=== PATIENT | male | born 1950 | race African-American/Black ===

== ENCOUNTER 2016-12-22 19:17 | Emergency (ER) | payer OTHER ==
[~2016-12-22] VITALS: Ht 170.2 cm; Wt 75.0 kg
[~2016-12-22 19:17] MED LIST: ALBU2.5V13 NEB; AMLO10TA80 PO; ATOR10TA PO; ATOR10TA69 PO; CLON0.5T PO; Folic Acid PO; HYDR-523 PO; METR250T PO; Multivitamins,Ther W-Minerals PO; OMEP20CA10 PO; Thiamine Hcl PO
[2016-12-22] MEDS ORDERED: MORPHINE SULFATE 4 MG/ML CPJ (NOT FOR IM USE) IV STA (22:39)
[2016-12-22] MEDS ORDERED: ONDANSETRON HCL 4MG/2ML VIAL IV STA (22:39)
[2016-12-22 22:49] LABS: BASOPHILS % 0.6 % (0.0-2.0); EOSINOPHILS % 4.5 % (0.0-5.0); HEMATOCRIT. 34.3 % (42.0-52.0); HEMOGLOBIN. 11.5 g/dL (14.0-18.0); LYMPHOCYTES % 35.3 % (20.0-50.0); MEAN CORPUSCULAR VOLUME 89.4 fL (80.0-94.0); MONOCYTES % 8.3 % (2.0-8.0); NEUTROPHILS % 51.3 % (40.0-76.0); PLATELET 158 x1000/uL (130-400); RED BLOOD CELL COUNT 3.84 mill/uL (4.7-6.1); RED CELL DISTRIBUTION WIDTH 14.3 % (11.6-14.6)
[2016-12-22 23:03] LABS: CARBON DIOXIDE 29 mEq/L (21-32); CHLORIDE 109 mEq/L (98-107)
[2016-12-22 23:06] LABS: PROTHROMBIN TIME 10.7 sec
[2016-12-23 00:16] LABS: CLARITY URINE CLEAR (CLEAR); COLOR URINE YELLOW (YELLOW); GLUCOSE URINE NEGATIVE (NEGATIVE); KETONES URINE NEGATIVE (NEGATIVE); LEUKOCYTE ESTERASE URINE NEGATIVE (NEGATIVE); NITRITE URINE NEGATIVE (NEGATIVE); OCCULT BLOOD URINE NEGATIVE (NEGATIVE); PROTEIN URINE NEGATIVE (NEGATIVE); SPECIFIC GRAVITY URINE 1.009 (1.005-1.030); UROBILINOGEN URINE 0.2 E.U./dL (0.2-1.0)
[2016-12-23] MEDS ORDERED: MORPHINE SULFATE 4 MG/ML CPJ (NOT FOR IM USE) IV ONE (01:15)
[2016-12-23] MEDS ORDERED: ONDANSETRON HCL 4MG/2ML VIAL IV ONE (01:15)
[2016-12-23 01:53] VITALS: BP 155/98
== END 2016-12-23 02:19 | disposition home or self-care (01) ==
LOC: ER 23:37
DX: A08.4 Viral intestinal infection, unspecified (principal); J45.909 Unspecified asthma, uncomplicated; Z88.0 Allergy status to penicillin; Z90.49 Acquired absence of other specified parts of digestive tract
CPT/HCPCS: 36415; 71010; 74176; 80053; 81003; 83690; 85025; 85610; 96374; 96375; 96376; 99285; J2270; J2405

== ENCOUNTER 2017-02-04 19:59 | Inpatient (IN) | payer OTHER ==
[~2017-02-04] VITALS: Ht 165.1 cm; Wt 73.5 kg
[2017-02-05] MEDS ORDERED: SODIUM CHLORIDE 0.9% 1,000 ML IV ONE (01:03)
[2017-02-05] MEDS ORDERED: ONDANSETRON HCL 4MG/2ML VIAL IV ONE (01:15)
[2017-02-05] MEDS ORDERED: MORPHINE SULFATE 4 MG/ML CPJ (NOT FOR IM USE) IV ONE ×2 (01:15→03:30)
[2017-02-05 01:32] LABS: BASOPHILS % 0.6 % (0.0-2.0); HEMATOCRIT. 36.9 % (42.0-52.0); HEMOGLOBIN. 12.5 g/dL (14.0-18.0); LYMPHOCYTES % 39.5 % (20.0-50.0); MEAN PLATELET VOLUME 8.3 fl (7.4-10.4); MONOCYTES % 8.1 % (2.0-8.0); NEUTROPHILS % 48.8 % (40.0-76.0); PLATELET 192 x1000/uL (130-400); RED BLOOD CELL COUNT 4.15 mill/uL (4.7-6.1); RED CELL DISTRIBUTION WIDTH 13.6 % (11.6-14.6)
[2017-02-05 01:47] LABS: CARBON DIOXIDE 24 mEq/L (21-32); CHLORIDE 106 mEq/L (98-107); TROPONIN I < 0.02 ng/mL (0.00-0.04)
[2017-02-05 01:52] LABS: INR 1.1; PARTIAL THROMBOPLASTIN TIME 28.5 sec (24.0-34.0); PROTHROMBIN TIME 11.1 sec
[2017-02-05 02:50] LABS: CLARITY URINE CLEAR (CLEAR); COLOR URINE YELLOW (YELLOW); GLUCOSE URINE NEGATIVE (NEGATIVE); KETONES URINE 2+ (NEGATIVE); LEUKOCYTE ESTERASE URINE NEGATIVE (NEGATIVE); NITRITE URINE NEGATIVE (NEGATIVE); OCCULT BLOOD URINE NEGATIVE (NEGATIVE); PROTEIN URINE TRACE (NEGATIVE); SPECIFIC GRAVITY URINE 1.024 (1.005-1.030)
[2017-02-05 08:20] VITALS: BP 148/93
[2017-02-05 09:00] VITALS: BP 148/93
[2017-02-05] MEDS ORDERED: CLONIDINE 0.1MG TABLET PO PRN (10:30)
[2017-02-05] MEDS ORDERED: DIPHENHYDRAMINE 50MG/ML VIAL IV PRN (10:30)
[2017-02-05] MEDS ORDERED: GUAIFENESIN 200MG/10ML SUGAR FREE UDC PO PRN (10:30)
[2017-02-05] MEDS ORDERED: IPRATROPIUM/ALBUTEROL 0.5-3(2.5)MG/3ML NEB INH PRN (10:30)
[2017-02-05] MEDS ORDERED: DOCUSATE SODIUM 100MG CAPSULE PO PRN (10:30)
[2017-02-05] MEDS ORDERED: NITROGLYCERIN 0.4MG TABLET SL SL PRN (10:30)
[2017-02-05] MEDS ORDERED: NA PHOS,M-B/NA PHOS,DI-BA ENEMA 118ML PR PRN (10:30)
[2017-02-05] MEDS ORDERED: ZOLPIDEM TARTRATE 5MG TABLET PO PRN (10:30)
[2017-02-05] MEDS ORDERED: MAGNESIUM/ALUMINUM HYDROXIDE/SIMETHICONE 30ML UDC PO PRN (10:30)
[2017-02-05] MEDS: ACETAMINOPHEN 325MG TABLET PO PRN ×2 (11:37→21:24)
[2017-02-05] MEDS: LISINOPRIL 20MG TABLET PO SCH ×2 (11:38→21:24)
[2017-02-05] MEDS: SUCRALFATE 1G TABLET PO SCH ×3 (11:38→21:23)
[2017-02-05] MEDS: PANTOPRAZOLE SODIUM 40 MG/VIAL IV SCH (11:38)
[2017-02-05] MEDS: METOPROLOL TARTRATE 25MG TABLET PO SCH ×2 (11:38→21:36)
[2017-02-05] MEDS: ENOXAPARIN 40MG/0.4ML SYR SUBCUT SCH (11:39)
[2017-02-05 12:00] VITALS: BP 182/96
[2017-02-05] MEDS ORDERED: KCL 20MEQ/100ML PREMIX 100 ML IV SCH (12:00)
[2017-02-05] MEDS ORDERED: SODIUM CHLORIDE 0.9% 10ML VIAL ONE (13:44)
[2017-02-05] MEDS ORDERED: IOHEXOL-300 100 ML BOTTLE ONE (13:44)
[2017-02-05 13:58] LABS: *AMPHETAMINES SCREEN URINE NEGATIVE (NEGATIVE); *BARBITURATES SCREEN URINE NEGATIVE (NEGATIVE); *BENZODIAZEPINES SCREEN URINE NEGATIVE (NEGATIVE); *COCAINE SCREEN URINE NEGATIVE (NEGATIVE); CANNABINOID URINE SCREEN NEGATIVE (NEGATIVE); METHADONE URINE SCREEN NEGATIVE (NEGATIVE); OPIATES URINE SCREEN NEGATIVE (NEGATIVE); PHENCYCLIDINE URINE SCREEN NEGATIVE (NEGATIVE)
[2017-02-05 16:00] VITALS: BP 122/97
[2017-02-05] MEDS: LORAZEPAM 2MG/ML CPJ IV PRN ×2 (18:01→23:06)
[2017-02-05] MEDS: AMLODIPINE 10MG TABLET PO SCH (18:01)
[2017-02-05 20:00] VITALS: BP 130/76
[2017-02-05] MEDS: ONDANSETRON HCL 4MG/2ML VIAL IV PRN (23:11)
[2017-02-06] VITALS: BP 98/72
[2017-02-06 04:00] VITALS: BP 126/80
[2017-02-06] MEDS: ONDANSETRON HCL 4MG/2ML VIAL IV PRN (06:08)
[2017-02-06] MEDS: LORAZEPAM 2MG/ML CPJ IV PRN ×2 (06:09→11:36)
[2017-02-06] MEDS: ACETAMINOPHEN 325MG TABLET PO PRN ×2 (06:11→11:36)
[2017-02-06] MEDS: SUCRALFATE 1G TABLET PO SCH (06:11)
[2017-02-06 08:00] VITALS: BP 126/84
[2017-02-06] MEDS: LISINOPRIL 20MG TABLET PO SCH (08:58)
[2017-02-06] MEDS: AMLODIPINE 10MG TABLET PO SCH (08:58)
[2017-02-06] MEDS: PANTOPRAZOLE SODIUM 40 MG/VIAL IV SCH (08:58)
[2017-02-06] MEDS: ENOXAPARIN 40MG/0.4ML SYR SUBCUT SCH (08:59)
[2017-02-06] MEDS: METOPROLOL TARTRATE 25MG TABLET PO SCH (08:59)
[2017-02-06 12:00] VITALS: BP 129/84
[2017-02-06 14:04] VITALS: BP 129/84
== END 2017-02-06 14:41 | disposition home or self-care (01) | DRG 392 ==
LOC: ER 19:59 → EDBEDREQ 02-05 03:45 → ENRESERV 02-05 07:16 → 6EST 02-05 08:20
PROVIDERS: ADMIT Internal Medicine; ATTEND Internal Medicine
DX: K21.9 Gastro-esophageal reflux disease without esophagitis (principal); R10.13 Epigastric pain; J45.909 Unspecified asthma, uncomplicated; I10 Essential (primary) hypertension; E87.6 Hypokalemia; E78.5 Hyperlipidemia, unspecified; E78.00 Pure hypercholesterolemia, unspecified; Z90.49 Acquired absence of other specified parts of digestive tract; Z76.5 Malingerer [conscious simulation]; Z88.6 Allergy status to analgesic agent; Z88.0 Allergy status to penicillin; Z79.899 Other long term (current) drug therapy
CPT/HCPCS: 36415; 71010; 74177; 80053; 80305; 81001; 83605; 83690; 83880; 84484; 85025; 85610; 85730; 86850; 86900; 87040; 87086; 93005; 93970; 96361; 96374; 96375; 96376; 99291; A4216; C9113; J1650; J2060; J2270; J2405; J3480; J7030; J7040; Q9967

== ENCOUNTER 2017-03-22 07:12 | Emergency (ER) | payer OTHER, MEDICAID ==
[~2017-03-22] VITALS: Ht 167.6 cm; Wt 74.0 kg
[2017-03-22] MEDS ORDERED: PANTOPRAZOLE SODIUM 40 MG/VIAL IV STA (07:32)
[2017-03-22] MEDS ORDERED: SODIUM CHLORIDE 0.9% 1,000 ML IV ONE (07:32)
[2017-03-22 08:07] LABS: BASOPHILS % 1.1 % (0.0-2.0); EOSINOPHILS % 6.5 % (0.0-5.0); HEMATOCRIT. 36.3 % (42.0-52.0); HEMOGLOBIN. 12.1 g/dL (14.0-18.0); LYMPHOCYTES % 40.6 % (20.0-50.0); MEAN CORPUSCULAR HEMOGLOBIN 30.2 pg (28.0-32.0); MEAN CORPUSCULAR VOLUME 90.3 fL (80.0-94.0); MEAN PLATELET VOLUME 8.3 fl (7.4-10.4); MONOCYTES % 6.3 % (2.0-8.0); NEUTROPHILS % 45.5 % (40.0-76.0); PLATELET 203 x1000/uL (130-400); RED BLOOD CELL COUNT 4.02 mill/uL (4.7-6.1); RED CELL DISTRIBUTION WIDTH 13.6 % (11.6-14.6)
[2017-03-22 08:08] LABS: CLARITY URINE CLEAR (CLEAR); COLOR URINE YELLOW (YELLOW); GLUCOSE URINE NEGATIVE (NEGATIVE); KETONES URINE NEGATIVE (NEGATIVE); LEUKOCYTE ESTERASE URINE NEGATIVE (NEGATIVE); NITRITE URINE NEGATIVE (NEGATIVE); OCCULT BLOOD URINE NEGATIVE (NEGATIVE); PH URINE 6.5 (4.5-8.0); PROTEIN URINE NEGATIVE (NEGATIVE); SPECIFIC GRAVITY URINE 1.006 (1.005-1.030); UROBILINOGEN URINE 0.2 E.U./dL (0.2-1.0)
[2017-03-22 08:20] LABS: PARTIAL THROMBOPLASTIN TIME 24.4 sec (23.4-31.0); PROTHROMBIN TIME 10.2 sec (9.4-11.6)
[2017-03-22 08:23] LABS: CARBON DIOXIDE 26 mEq/L (21-32); CHLORIDE 111 mEq/L (98-107); TROPONIN I < 0.02 ng/mL (0.00-0.04)
[2017-03-22 10:11] VITALS: BP 140/90
== END 2017-03-22 11:01 | disposition home or self-care (01) ==
LOC: ER 07:12
DX: K62.5 Hemorrhage of anus and rectum (principal); F10.10 Alcohol abuse, uncomplicated; I10 Essential (primary) hypertension; K21.9 Gastro-esophageal reflux disease without esophagitis; J45.909 Unspecified asthma, uncomplicated; Z88.0 Allergy status to penicillin; Z90.49 Acquired absence of other specified parts of digestive tract; Z98.890 Other specified postprocedural states; Z88.8 Allergy status to other drugs, medicaments and biological substances
CPT/HCPCS: 36415; 71010; 80053; 81003; 83690; 84484; 85025; 85610; 85730; 86850; 86900; 86901; 93005; 96361; 96374; 99285; C9113; J7030

== ENCOUNTER 2017-05-01 21:38 | Inpatient (IN) | payer OTHER, MEDICAID ==
[~2017-05-01] VITALS: Ht 167.6 cm; Wt 75.0 kg
[2017-05-01] MEDS ORDERED: SODIUM CHLORIDE 0.9% 1,000 ML IV ONE (23:12)
[2017-05-01] MEDS ORDERED: MORPHINE SULFATE 4 MG/ML CPJ (NOT FOR IM USE) IV STA (23:12)
[2017-05-01] MEDS ORDERED: ONDANSETRON HCL 4MG/2ML VIAL IV STA (23:12)
[2017-05-01] MEDS ORDERED: FAMOTIDINE 20MG/2ML VIAL IV STA (23:12)
[2017-05-01] MEDS ORDERED: MORPHINE SULFATE 2 MG/ML CPJ (NOT FOR IM USE) IV SCH (23:45)
[2017-05-01 23:46] LABS: BASOPHILS % 0.8 % (0.0-2.0); EOSINOPHILS % 3.6 % (0.0-5.0); HEMATOCRIT. 37.7 % (42.0-52.0); HEMOGLOBIN. 12.9 g/dL (14.0-18.0); LYMPHOCYTES % 37.3 % (20.0-50.0); MEAN CORPUSCULAR HEMOGLOBIN 30.8 pg (28.0-32.0); MEAN CORPUSCULAR VOLUME 90.4 fL (80.0-94.0); MEAN PLATELET VOLUME 8.6 fl (7.4-10.4); MONOCYTES % 7.8 % (2.0-8.0); NEUTROPHILS % 50.5 % (40.0-76.0); PLATELET 196 x1000/uL (130-400); RED BLOOD CELL COUNT 4.17 mill/uL (4.7-6.1); RED CELL DISTRIBUTION WIDTH 13.5 % (11.6-14.6)
[2017-05-01 23:49] LABS: D-DIMER 0.36 mg/L FEU (<0.50); INR 1.1; PROTHROMBIN TIME 11.2 sec (9.4-11.6)
[2017-05-01 23:57] LABS: CARBON DIOXIDE 27 mEq/L (21-32); CHLORIDE 108 mEq/L (98-107); ETHANOL BLOOD < 10 mg/dL; TROPONIN I < 0.02 ng/mL (0.00-0.04)
[2017-05-02] MEDS ORDERED: HYDRALAZINE 20MG/ML VIAL IV SCH (00:28)
[2017-05-02 00:56] LABS: CLARITY URINE CLEAR (CLEAR); COLOR URINE YELLOW (YELLOW); GLUCOSE URINE NEGATIVE (NEGATIVE); KETONES URINE TRACE (NEGATIVE); LEUKOCYTE ESTERASE URINE NEGATIVE (NEGATIVE); NITRITE URINE NEGATIVE (NEGATIVE); OCCULT BLOOD URINE NEGATIVE (NEGATIVE); PROTEIN URINE 1+ (NEGATIVE); SPECIFIC GRAVITY URINE 1.048 (1.005-1.030); UROBILINOGEN URINE 0.2 E.U./dL (0.2-1.0)
[2017-05-02] MEDS ORDERED: DIPHENHYDRAMINE 12.5MG/5ML UDC PO ONE (01:00)
[2017-05-02 01:15] LABS: *AMPHETAMINES SCREEN URINE NEGATIVE (NEGATIVE); *BARBITURATES SCREEN URINE NEGATIVE (NEGATIVE); *BENZODIAZEPINES SCREEN URINE NEGATIVE (NEGATIVE); *COCAINE SCREEN URINE NEGATIVE (NEGATIVE); CANNABINOID URINE SCREEN NEGATIVE (NEGATIVE); METHADONE URINE SCREEN NEGATIVE (NEGATIVE); OPIATES URINE SCREEN PRESUMTIVE POSITIVE (NEGATIVE); PHENCYCLIDINE URINE SCREEN NEGATIVE (NEGATIVE)
[2017-05-02] MEDS ORDERED: DIPHENHYDRAMINE 50MG/ML VIAL IV PRN (01:45)
[2017-05-02] MEDS ORDERED: HYDRALAZINE 20MG/ML VIAL IV PRN (01:45)
[2017-05-02] MEDS ORDERED: IPRATROPIUM/ALBUTEROL 0.5-3(2.5)MG/3ML NEB INH PRN (01:45)
[2017-05-02] MEDS ORDERED: ONDANSETRON HCL 4MG/2ML VIAL ONE (02:14)
[2017-05-02] MEDS ORDERED: HYDRALAZINE 20MG/ML VIAL ONE (03:32)
[2017-05-02 04:00] VITALS: BP 136/84
[2017-05-02] MEDS ORDERED: DEXT 5%/0.45% NACL KCL 20MEQ/L 1,000 ML IV ONE (06:30)
[2017-05-02 08:00] VITALS: BP 170/106
[2017-05-02] MEDS: MORPHINE SULFATE 2 MG/ML CPJ (NOT FOR IM USE) IV PRN ×3 (08:37→23:14)
[2017-05-02] MEDS: CLONIDINE 0.2MG TABLET PO PRN (08:54)
[2017-05-02] MEDS ORDERED: PANTOPRAZOLE SODIUM 40 MG/VIAL IV SCH (09:00)
[2017-05-02] MEDS ORDERED: FAMOTIDINE 20MG/2ML VIAL IV SCH (09:00)
[2017-05-02] MEDS ORDERED: HYDRALAZINE 10 MG in DEXTROSE 5% WATER 50 ML IV PRN (10:15)
[2017-05-02] MEDS ORDERED: ACETAMINOPHEN 325MG TABLET PO PRN (11:30)
[2017-05-02 11:34] VITALS: BP 156/93
[2017-05-02] MEDS ORDERED: ONDANSETRON HCL 4MG/2ML VIAL IV PRN (12:30)
[2017-05-02] MEDS: PANTOPRAZOLE SODIUM 40 MG/VIAL IV SCH ×2 (12:48→20:07)
[2017-05-02 15:59] VITALS: BP 129/91
[2017-05-02] MEDS ORDERED: LORAZEPAM 1MG TABLET PO PRN (16:15)
[2017-05-02 20:00] VITALS: BP 136/79
[2017-05-03] VITALS: BP 121/70
[2017-05-03 08:00] VITALS: BP 147/87
[2017-05-03] MEDS: PANTOPRAZOLE SODIUM 40 MG/VIAL IV SCH (09:52)
[2017-05-03] MEDS ORDERED: MIDAZOLAM HCL 5 MG/5 ML VIAL IV ONE (11:40)
[2017-05-03] MEDS ORDERED: FENTANYL CITRATE/PF 50MCG/ML 2ML VIAL IV ONE (11:40)
[2017-05-03] MEDS ORDERED: MIDAZOLAM HCL 2 MG/2 ML VIAL IV ONE (11:40)
[2017-05-03] MEDS ORDERED: DIPHENHYDRAMINE 50MG/ML VIAL ONE ×2 (11:40→12:14)
[2017-05-03] MEDS ORDERED: DIAZEPAM 5 MG/ML 2ML CPJ IV ONE (11:40)
[2017-05-03] MEDS ORDERED: MIDAZOLAM HCL 5 MG/5 ML VIAL ONE (11:41)
[2017-05-03] MEDS ORDERED: FENTANYL CITRATE/PF 50MCG/ML 2ML VIAL ONE (11:41)
[2017-05-03] MEDS ORDERED: DIAZEPAM 5 MG/ML 2ML CPJ ONE ×2 (11:43→12:15)
[2017-05-03] MEDS ORDERED: SODIUM CHLORIDE 0.9% 10ML VIAL ONE (11:47)
[2017-05-03] MEDS ORDERED: SIMETHICONE 40 MG/0.6 ML 30ML ONE (11:47)
[2017-05-03] MEDS ORDERED: MORPHINE SULFATE 10 MG/ML CPJ IV PRN (15:00)
[2017-05-03] MEDS: CLONIDINE 0.2MG TABLET PO PRN (15:33)
[2017-05-03 16:00] VITALS: BP 168/106
[2017-05-03 16:10] LABS: BASOPHILS % 0.8 % (0.0-2.0); EOSINOPHILS % 4.7 % (0.0-5.0); HEMATOCRIT. 43.7 % (42.0-52.0); HEMOGLOBIN. 14.5 g/dL (14.0-18.0); LYMPHOCYTES % 36.3 % (20.0-50.0); MEAN CORPUSCULAR HEMOGLOBIN 30.3 pg (28.0-32.0); MEAN CORPUSCULAR VOLUME 91.6 fL (80.0-94.0); MEAN PLATELET VOLUME 8.9 fl (7.4-10.4); MONOCYTES % 5.2 % (2.0-8.0); PLATELET 191 x1000/uL (130-400); RED BLOOD CELL COUNT 4.77 mill/uL (4.7-6.1); RED CELL DISTRIBUTION WIDTH 13.7 % (11.6-14.6)
[2017-05-03 16:14] LABS: INR 1.1; PARTIAL THROMBOPLASTIN TIME 21.7 sec (23.4-31.0); PROTHROMBIN TIME 11.8 sec (9.4-11.6)
[2017-05-03 16:22] LABS: CARBON DIOXIDE 27 mEq/L (21-32); CHLORIDE 109 mEq/L (98-107)
[2017-05-03 16:44] VITALS: BP 140/85
[2017-05-03] MEDS ORDERED: DIPHENHYDRAMINE 50MG/ML VIAL IV ONE (21:05)
== END 2017-05-03 15:30 | disposition home or self-care (01) | DRG 392 ==
LOC: ER 22:12 → 6EST 05-02 00:34 → ENRESERV 05-02 04:58
PROVIDERS: ADMIT Internal Medicine; ATTEND Internal Medicine
PROC: 0DB68ZX Excision of Stomach, Via Natural or Artificial Opening Endoscopic, Diagnostic (ICD-10-PCS; principal; 2017-05-03 10:00)
DX: K29.60 Other gastritis without bleeding (principal); K56.7 Ileus, unspecified; N30.90 Cystitis, unspecified without hematuria; E78.00 Pure hypercholesterolemia, unspecified; F41.9 Anxiety disorder, unspecified; I10 Essential (primary) hypertension; J45.909 Unspecified asthma, uncomplicated; Z60.2 Problems related to living alone; K21.9 Gastro-esophageal reflux disease without esophagitis; K57.30 Diverticulosis of large intestine without perforation or abscess without bleeding; N28.1 Cyst of kidney, acquired; N40.0 Benign prostatic hyperplasia without lower urinary tract symptoms; Z87.11 Personal history of peptic ulcer disease; Z90.49 Acquired absence of other specified parts of digestive tract; Z88.6 Allergy status to analgesic agent; Z88.0 Allergy status to penicillin; Z88.8 Allergy status to other drugs, medicaments and biological substances; Z82.49 Family history of ischemic heart disease and other diseases of the circulatory system
CPT/HCPCS: 36415; 71010; 74176; 80048; 80053; 80305; 81001; 82962; 83605; 83690; 83880; 84484; 85025; 85379; 85610; 85730; 88305; 88312; 88313; 93005; 96361; 96365; 96375; 96376; 99291; A4216; C1893; C9113; G0482; J0360; J1200; J2250; J2270; J2405; J3010; J3490; J7030

== ENCOUNTER 2017-08-09 09:05 | Emergency (ER) | payer OTHER, MEDICAID ==
[~2017-08-09] VITALS: Ht 180.3 cm; Wt 75.0 kg
[2017-08-09] MEDS ORDERED: ACETAMINOPHEN 500MG TABLET PO ONE (11:45)
[2017-08-09 12:08] VITALS: BP 139/81
== END 2017-08-09 12:09 | disposition home or self-care (01) ==
LOC: ER 09:12
DX: S39.012A Strain of muscle, fascia and tendon of lower back, initial encounter (principal); S00.93XA Contusion of unspecified part of head, initial encounter; G89.29 Other chronic pain; J45.909 Unspecified asthma, uncomplicated; I10 Essential (primary) hypertension; E78.00 Pure hypercholesterolemia, unspecified; Z88.0 Allergy status to penicillin; Z88.8 Allergy status to other drugs, medicaments and biological substances; Z88.6 Allergy status to analgesic agent; Y93.89 Activity, other specified; X58.XXXA Exposure to other specified factors, initial encounter; Y92.89 Other specified places as the place of occurrence of the external cause; Y99.8 Other external cause status
CPT/HCPCS: 99283

== ENCOUNTER 2017-09-26 00:49 | Inpatient (IN) | payer OTHER, MEDICAID ==
[~2017-09-26] VITALS: Ht 170.2 cm; Wt 74.4 kg
[2017-09-26] MEDS ORDERED: MORPHINE SULFATE 4 MG/ML CPJ (NOT FOR IM USE) IV STA (02:38)
[2017-09-26] MEDS ORDERED: SODIUM CHLORIDE 0.9% 1,000 ML IV ONE (02:38)
[2017-09-26] MEDS ORDERED: ONDANSETRON HCL 4MG/2ML VIAL IV STA (02:38)
[2017-09-26] MEDS ORDERED: FAMOTIDINE 20MG/2ML VIAL IV STA (02:38)
[2017-09-26 03:05] LABS: BASOPHILS % 1.8 % (0.0-2.0); EOSINOPHILS % 1.9 % (0.0-5.0); HEMATOCRIT. 41.3 % (42.0-52.0); HEMOGLOBIN. 13.9 g/dL (14.0-18.0); MEAN CORPUSCULAR VOLUME 92.2 fL (80.0-94.0); MONOCYTES % 7.2 % (2.0-8.0); NEUTROPHILS % 54.1 % (40.0-76.0); PLATELET 218 x1000/uL (130-400); RED BLOOD CELL COUNT 4.48 mill/uL (4.7-6.1); RED CELL DISTRIBUTION WIDTH 13.5 % (11.6-14.6)
[2017-09-26 03:14] LABS: CHLORIDE 110 mEq/L (98-107)
[2017-09-26] MEDS ORDERED: SODIUM CHLORIDE 0.9% 1,000 ML IV SCH (05:12)
[2017-09-26] MEDS ORDERED: ACETAMINOPHEN 325MG TABLET PO PRN ×2 (05:15→10:00)
[2017-09-26 08:00] VITALS: BP 130/89
[2017-09-26 08:40] VITALS: BP 130/89
[2017-09-26] MEDS ORDERED: LORAZEPAM 0.5MG TABLET PO PRN (10:00)
[2017-09-26] MEDS ORDERED: ONDANSETRON HCL 4MG/2ML VIAL IV PRN (10:00)
[2017-09-26] MEDS ORDERED: DOCUSATE SODIUM 100MG CAPSULE PO PRN (10:00)
[2017-09-26] MEDS ORDERED: NITROGLYCERIN 0.4MG TABLET SL SL PRN (10:00)
[2017-09-26] MEDS ORDERED: CLONIDINE 0.1MG TABLET PO PRN (10:00)
[2017-09-26] MEDS ORDERED: NA PHOS,M-B/NA PHOS,DI-BA ENEMA 118ML PR PRN (10:00)
[2017-09-26] MEDS ORDERED: IPRATROPIUM/ALBUTEROL 0.5-3(2.5)MG/3ML NEB INH PRN (10:00)
[2017-09-26] MEDS ORDERED: MAGNESIUM/ALUMINUM HYDROXIDE/SIMETHICONE 30ML UDC PO PRN (10:00)
[2017-09-26] MEDS ORDERED: DIPHENHYDRAMINE 50MG/ML VIAL IV PRN (10:00)
[2017-09-26] MEDS ORDERED: GUAIFENESIN 200MG/10ML SUGAR FREE UDC PO PRN (10:00)
[2017-09-26] MEDS ORDERED: PANTOPRAZOLE 40MG DR TABLET PO SCH (10:30)
[2017-09-26] MEDS ORDERED: ENOXAPARIN 40MG/0.4ML SYR SUBCUT SCH (11:00)
[2017-09-26] MEDS ORDERED: SUCRALFATE 1 G/10 ML UDC PO SCH (12:10)
[2017-09-26] MEDS ORDERED: ZOLPIDEM TARTRATE 5MG TABLET PO PRN (21:00)
== END 2017-09-26 11:00 | disposition left against medical advice (07) | DRG 391 ==
LOC: ER 00:49 → 8WST 05:14 → EDBEDREQ 05:18 → EDBEDREQSVC 05:18 → ENRESERV 08:03
PROVIDERS: ADMIT Internal Medicine; ATTEND Internal Medicine
DX: K29.70 Gastritis, unspecified, without bleeding (principal); N17.0 Acute kidney failure with tubular necrosis; D64.9 Anemia, unspecified; E78.00 Pure hypercholesterolemia, unspecified; Z53.21 Procedure and treatment not carried out due to patient leaving prior to being seen by health care provider; F10.10 Alcohol abuse, uncomplicated; I10 Essential (primary) hypertension; J45.909 Unspecified asthma, uncomplicated; Z82.49 Family history of ischemic heart disease and other diseases of the circulatory system; Z90.49 Acquired absence of other specified parts of digestive tract; Z88.0 Allergy status to penicillin; Z88.6 Allergy status to analgesic agent; Z88.8 Allergy status to other drugs, medicaments and biological substances; Z79.51 Long term (current) use of inhaled steroids; Z79.899 Other long term (current) drug therapy
CPT/HCPCS: 36415; 80053; 83036; 83690; 85025; 96361; 96374; 96375; 99285; J2270; J2405; J3490; J7030

== ENCOUNTER 2018-03-12 03:11 | Emergency (ER) | payer MEDICAID, OTHER ==
[~2018-03-12] VITALS: Ht 170.2 cm; Wt 74.5 kg
[2018-03-12] MEDS ORDERED: MORPHINE SULFATE 10 MG/ML CPJ IM ONE (05:30)
[2018-03-12] MEDS ORDERED: ONDANSETRON 4MG ODT PO ONE (05:30)
[2018-03-12 06:13] VITALS: BP 141/90
== END 2018-03-12 06:15 | disposition home or self-care (01) ==
LOC: ER 03:11
DX: M54.30 Sciatica, unspecified side (principal); J45.909 Unspecified asthma, uncomplicated; I10 Essential (primary) hypertension; Z88.0 Allergy status to penicillin; Z88.8 Allergy status to other drugs, medicaments and biological substances; Z88.6 Allergy status to analgesic agent
CPT/HCPCS: 96372; 99283; J2270; Q0162; Z7610

== ENCOUNTER 2018-03-25 18:59 | Emergency (ER) | payer MEDICAID, OTHER ==
[~2018-03-25] VITALS: Ht 170.2 cm; Wt 74.0 kg
[2018-03-25] MEDS ORDERED: FOLIC ACID 1 MG, THIAMINE HCL 100 MG, MVI, ADULT NO.1 10 ML in DEXTROSE 5% WATER 1,000 ML IV ONE ×4 (22:45)
[2018-03-25] MEDS ORDERED: LORAZEPAM 2MG/ML CPJ IV STA (22:45)
[2018-03-25] MEDS ORDERED: ONDANSETRON HCL 4MG/2ML INJ IV ONE (23:30)
[2018-03-26 00:05] LABS: BASOPHILS % 0.5 % (0.0-2.0); EOSINOPHILS % 3.9 % (0.0-5.0); HEMATOCRIT. 39.6 % (42.0-52.0); LYMPHOCYTES % 38.9 % (20.0-50.0); MEAN CORPUSCULAR HEMOGLOBIN 30.1 pg (28.0-32.0); MEAN PLATELET VOLUME 8.2 fl (7.4-10.4); MONOCYTES % 7.5 % (2.0-8.0); NEUTROPHILS % 49.2 % (40.0-76.0); PLATELET 213 x1000/uL (130-400); RED BLOOD CELL COUNT 4.31 mill/uL (4.7-6.1); RED CELL DISTRIBUTION WIDTH 13.8 % (11.6-14.6)
[2018-03-26 00:10] LABS: CHLORIDE 108 mEq/L (98-107)
[2018-03-26 00:14] LABS: ETHANOL BLOOD 14 mg/dL
[2018-03-26] MEDS ORDERED: CHLORDIAZEPOXIDE 25MG CAPSULE PO ONE (03:00)
[2018-03-26 03:56] LABS: CLARITY URINE CLEAR (CLEAR); COLOR URINE YELLOW (YELLOW); KETONES URINE NEGATIVE (NEGATIVE); LEUKOCYTE ESTERASE URINE NEGATIVE (NEGATIVE); NITRITE URINE NEGATIVE (NEGATIVE); OCCULT BLOOD URINE NEGATIVE (NEGATIVE); PROTEIN URINE NEGATIVE (NEGATIVE); SPECIFIC GRAVITY URINE 1.018 (1.005-1.030); UROBILINOGEN URINE 0.2 E.U./dL (0.2-1.0)
[2018-03-26 04:42] LABS: METHADONE URINE SCREEN NEGATIVE (NEGATIVE); OPIATES URINE SCREEN PRESUMTIVE POSITIVE (NEGATIVE); PHENCYCLIDINE URINE SCREEN NEGATIVE (NEGATIVE)
[2018-03-26 04:43] LABS: *AMPHETAMINES SCREEN URINE NEGATIVE (NEGATIVE); *BARBITURATES SCREEN URINE NEGATIVE (NEGATIVE); *BENZODIAZEPINES SCREEN URINE PRESUMTIVE POSITIVE (NEGATIVE); *COCAINE SCREEN URINE NEGATIVE (NEGATIVE); CANNABINOID URINE SCREEN NEGATIVE (NEGATIVE)
[2018-03-26 05:50] VITALS: BP 129/68
== END 2018-03-26 05:55 | disposition home or self-care (01) ==
LOC: ER 18:59
DX: F10.239 Alcohol dependence with withdrawal, unspecified (principal); I10 Essential (primary) hypertension; K21.9 Gastro-esophageal reflux disease without esophagitis; J45.909 Unspecified asthma, uncomplicated; Y90.0 Blood alcohol level of less than 20 mg/100 ml; Z98.890 Other specified postprocedural states; Z88.0 Allergy status to penicillin; Z88.6 Allergy status to analgesic agent; Z90.49 Acquired absence of other specified parts of digestive tract
CPT/HCPCS: 36415; 80053; 80305; 81003; 83690; 85025; 96365; 96366; 96375; 99285; G0482; J2060; J2405; J3411; J3490; J7070; Z7610

== ENCOUNTER 2018-04-07 05:34 | Emergency (ER) | payer MEDICAID, OTHER ==
[~2018-04-07] VITALS: Ht 170.2 cm; Wt 75.0 kg
[2018-04-07] MEDS ORDERED: ACETAMINOPHEN WITH CODEINE 300/30MG TABLET PO ONE (08:00)
[2018-04-07] MEDS ORDERED: TRAMADOL 50MG TABLET PO ONE (09:30)
[2018-04-07 09:44] VITALS: BP 134/80
== END 2018-04-07 09:46 | disposition home or self-care (01) ==
LOC: ER 05:34
DX: M54.42 Lumbago with sciatica, left side (principal); M54.41 Lumbago with sciatica, right side; G89.29 Other chronic pain; I10 Essential (primary) hypertension; Z88.0 Allergy status to penicillin; Z88.6 Allergy status to analgesic agent; Z88.8 Allergy status to other drugs, medicaments and biological substances; Z87.891 Personal history of nicotine dependence
CPT/HCPCS: 99283

== ENCOUNTER 2018-07-17 03:31 | Emergency (ER) | payer MEDICAID, OTHER ==
[~2018-07-17] VITALS: Ht 170.2 cm; Wt 75.0 kg
[2018-07-17] MEDS ORDERED: HYDROCODONE/ACETAMINOPHEN 5/325MG TABLET PO ONE (06:30)
[2018-07-17] MEDS ORDERED: LORAZEPAM 1MG TABLET PO ONE (08:45)
[2018-07-17] MEDS ORDERED: MORPHINE SULFATE 10 MG/ML CPJ IM ONE (08:45)
[2018-07-17] MEDS ORDERED: ONDANSETRON 4MG ODT PO ONE (08:45)
[2018-07-17 10:00] VITALS: BP 144/84
== END 2018-07-17 10:30 | disposition home or self-care (01) ==
LOC: ER 03:31
DX: G89.29 Other chronic pain (principal); M54.5 Low back pain; M54.30 Sciatica, unspecified side; I10 Essential (primary) hypertension; J45.909 Unspecified asthma, uncomplicated; Z88.6 Allergy status to analgesic agent; Z88.0 Allergy status to penicillin
CPT/HCPCS: 96372; 99284; J2270; Q0162

== ENCOUNTER 2018-08-08 01:41 | Inpatient (IN) | payer MEDICAID, OTHER ==
[~2018-08-08] VITALS: Ht 170.2 cm; Wt 69.0 kg
[2018-08-08 05:43] LABS: BASOPHILS % 0.7 % (0.0-2.0); EOSINOPHILS % 2.4 % (0.0-5.0); HEMATOCRIT. 38.1 % (42.0-52.0); HEMOGLOBIN. 12.7 g/dL (14.0-18.0); LYMPHOCYTES % 40.3 % (20.0-50.0); MEAN CORPUSCULAR HEMOGLOBIN 30.5 pg (28.0-32.0); MEAN CORPUSCULAR VOLUME 91.5 fL (80.0-94.0); MEAN PLATELET VOLUME 7.8 fl (7.4-10.4); NEUTROPHILS % 49.6 % (40.0-76.0); PLATELET 267 x1000/uL (130-400); RED BLOOD CELL COUNT 4.17 mill/uL (4.7-6.1); RED CELL DISTRIBUTION WIDTH 13.8 % (11.6-14.6)
[2018-08-08 05:44] LABS: CHLORIDE 105 mEq/L (98-107)
[2018-08-08 05:48] LABS: ETHANOL BLOOD < 10 mg/dL
[2018-08-08 05:56] LABS: CLARITY URINE CLEAR (CLEAR); COLOR URINE YELLOW (YELLOW); KETONES URINE TRACE (NEGATIVE); LEUKOCYTE ESTERASE URINE NEGATIVE (NEGATIVE); NITRITE URINE NEGATIVE (NEGATIVE); OCCULT BLOOD URINE NEGATIVE (NEGATIVE); PROTEIN URINE TRACE (NEGATIVE); UROBILINOGEN URINE 0.2 E.U./dL (0.2-1.0)
[2018-08-08 06:13] LABS: *BARBITURATES SCREEN URINE NEGATIVE (NEGATIVE); *COCAINE SCREEN URINE NEGATIVE (NEGATIVE)
[2018-08-08 06:14] LABS: *AMPHETAMINES SCREEN URINE NEGATIVE (NEGATIVE); *BENZODIAZEPINES SCREEN URINE PRESUMTIVE POSITIVE (NEGATIVE); CANNABINOID URINE SCREEN NEGATIVE (NEGATIVE); METHADONE URINE SCREEN NEGATIVE (NEGATIVE); OPIATES URINE SCREEN PRESUMTIVE POSITIVE (NEGATIVE); PHENCYCLIDINE URINE SCREEN NEGATIVE (NEGATIVE)
[2018-08-08] MEDS ORDERED: ONDANSETRON HCL 4MG/2ML INJ IV ONE (06:45)
[2018-08-08] MEDS ORDERED: SODIUM CHLORIDE 0.9% 1,000 ML IV ONE (06:45)
[2018-08-08] MEDS ORDERED: MORPHINE SULFATE 4 MG/ML CPJ (NOT FOR IM USE) IV ONE ×2 (06:45→11:00)
[2018-08-08 07:07] LABS: CREATINE KINASE 206 IU/L (39-308)
[2018-08-08] MEDS ORDERED: IOHEXOL-300 100 ML BOTTLE ONE (09:42)
[2018-08-08] MEDS ORDERED: METOCLOPRAMIDE HCL 10MG/2ML VIAL IV ONE (11:00)
[2018-08-08] MEDS ORDERED: ACETAMINOPHEN 325MG TABLET PO PRN (14:15)
[2018-08-08] MEDS ORDERED: DOCUSATE SODIUM 100MG CAPSULE PO PRN (14:15)
[2018-08-08] MEDS ORDERED: NA PHOS,M-B/NA PHOS,DI-BA ENEMA 118ML PR PRN (14:15)
[2018-08-08] MEDS ORDERED: IPRATROPIUM/ALBUTEROL 0.5-3(2.5)MG/3ML NEB INH PRN (14:15)
[2018-08-08] MEDS ORDERED: MAGNESIUM/ALUMINUM HYDROXIDE/SIMETHICONE 30ML UDC PO PRN (14:15)
[2018-08-08] MEDS ORDERED: CLONIDINE 0.1MG TABLET PO PRN (14:15)
[2018-08-08] MEDS ORDERED: GUAIFENESIN 200MG/10ML SUGAR FREE UDC PO PRN (14:15)
[2018-08-08 15:35] LABS: CHLORIDE 107 mEq/L (98-107)
[2018-08-08] MEDS: ONDANSETRON HCL 4MG/2ML INJ IV PRN (16:22)
[2018-08-08] MEDS: MORPHINE SULFATE 4 MG/ML CPJ (NOT FOR IM USE) IV PRN ×2 (16:22→22:25)
[2018-08-08] MEDS ORDERED: AMLODIPINE 5MG TABLET PO NR (18:00)
[2018-08-08] MEDS ORDERED: ENOXAPARIN 40MG/0.4ML SYR SUBCUT NR (18:00)
[2018-08-08 21:17] VITALS: BP 147/90
[2018-08-08 22:00] VITALS: BP 128/74
[2018-08-08] MEDS: LORAZEPAM 2MG/ML CPJ IV PRN (22:16)
[2018-08-08] MEDS ORDERED: METO25TA6 MT (23:04)
[2018-08-09] VITALS (12 sets, daily range): BP systolic 119–144; BP diastolic 76–91
[2018-08-09 06:58] LABS: BASOPHILS % 0.8 % (0.0-2.0); HEMATOCRIT. 35.4 % (42.0-52.0); HEMOGLOBIN. 11.9 g/dL (14.0-18.0); LYMPHOCYTES % 41.3 % (20.0-50.0); MEAN CORPUSCULAR HEMOGLOBIN 30.7 pg (28.0-32.0); MEAN CORPUSCULAR VOLUME 91.6 fL (80.0-94.0); MEAN PLATELET VOLUME 7.8 fl (7.4-10.4); MONOCYTES % 7.1 % (2.0-8.0); NEUTROPHILS % 44.8 % (40.0-76.0); PLATELET 243 x1000/uL (130-400); RED BLOOD CELL COUNT 3.86 mill/uL (4.7-6.1); RED CELL DISTRIBUTION WIDTH 14.1 % (11.6-14.6)
[2018-08-09 07:33] LABS: CHLORIDE 106 mEq/L (98-107)
[2018-08-09 07:41] LABS: CREATINE KINASE MB FRACTION < 1.0 ng/mL (0.5-3.6)
[2018-08-09 07:42] LABS: HDL CHOLESTEROL 70 mg/dL (40-59)
[2018-08-09 07:43] LABS: LDL CHOLESTEROL 162 mg/dL (5-100)
[2018-08-09 07:44] LABS: CREATINE KINASE 109 IU/L (39-308)
[2018-08-09] MEDS: ASPIRIN 81MG EC TABLET PO SCH (08:09)
[2018-08-09] MEDS: MORPHINE SULFATE 4 MG/ML CPJ (NOT FOR IM USE) IV PRN (08:09)
[2018-08-09] MEDS: ENOXAPARIN 40MG/0.4ML SYR SUBCUT SCH (08:09)
[2018-08-09] MEDS: AMLODIPINE 5MG TABLET PO SCH ×2 (08:10→20:52)
[2018-08-09] MEDS: HYDROCODONE/ACETAMINOPHEN 5/325MG TABLET PO PRN ×2 (11:55→18:59)
[2018-08-09] MEDS: LORAZEPAM 2MG/ML CPJ IV PRN ×2 (14:17→20:53)
[2018-08-09] MEDS: ATORVASTATIN CALCIUM 20MG TABLET PO SCH (20:51)
[2018-08-10] VITALS (12 sets, daily range): BP systolic 114–165; BP diastolic 24–96
[2018-08-10] MEDS: HYDROCODONE/ACETAMINOPHEN 5/325MG TABLET PO PRN ×3 (01:59→17:59)
[2018-08-10] MEDS: MORPHINE SULFATE 4 MG/ML CPJ (NOT FOR IM USE) IV PRN ×3 (05:01→21:37)
[2018-08-10] MEDS: LORAZEPAM 2MG/ML CPJ IV PRN ×3 (07:30→22:11)
[2018-08-10] MEDS: ONDANSETRON HCL 4MG/2ML INJ IV PRN (07:30)
[2018-08-10] MEDS: AMLODIPINE 5MG TABLET PO SCH ×2 (08:49→20:34)
[2018-08-10] MEDS: ASPIRIN 81MG EC TABLET PO SCH (08:49)
[2018-08-10] MEDS: ENOXAPARIN 40MG/0.4ML SYR SUBCUT SCH (08:50)
[2018-08-10] MEDS: BACLOFEN 10MG TABLET PO PRN (12:33)
[2018-08-10] MEDS ORDERED: REGADENOSON 0.4 MG/5 ML IV ONE (12:45)
[2018-08-10] MEDS: ATORVASTATIN CALCIUM 20MG TABLET PO SCH (20:30)
[2018-08-11] VITALS: BP 122/81
[2018-08-11 02:10] VITALS: BP 123/83
[2018-08-11] MEDS: HYDROCODONE/ACETAMINOPHEN 5/325MG TABLET PO PRN (02:10)
[2018-08-11 04:00] VITALS: BP 112/68
[2018-08-11] MEDS: LORAZEPAM 2MG/ML CPJ IV PRN (04:57)
[2018-08-11 06:00] VITALS: BP 133/83
[2018-08-11 07:06] LABS: BASOPHILS % 0.5 % (0.0-2.0); EOSINOPHILS % 2.5 % (0.0-5.0); HEMATOCRIT. 37.5 % (42.0-52.0); HEMOGLOBIN. 12.4 g/dL (14.0-18.0); LYMPHOCYTES % 23.9 % (20.0-50.0); MEAN CORPUSCULAR HEMOGLOBIN 30.4 pg (28.0-32.0); MEAN PLATELET VOLUME 8.1 fl (7.4-10.4); MONOCYTES % 11.1 % (2.0-8.0); PLATELET 245 x1000/uL (130-400); RED BLOOD CELL COUNT 4.07 mill/uL (4.7-6.1); RED CELL DISTRIBUTION WIDTH 13.9 % (11.6-14.6)
[2018-08-11 07:23] LABS: CHLORIDE 103 mEq/L (98-107)
[2018-08-11] MEDS: ASPIRIN 81MG EC TABLET PO SCH (08:04)
[2018-08-11] MEDS: ENOXAPARIN 40MG/0.4ML SYR SUBCUT SCH (08:05)
[2018-08-11] MEDS: AMLODIPINE 5MG TABLET PO SCH (08:05)
[2018-08-11] MEDS ORDERED: REGADENOSON 0.4 MG/5 ML IV ONE (08:14)
[2018-08-11] MEDS: BACLOFEN 10MG TABLET PO PRN (09:08)
[2018-08-11 10:00] VITALS: BP 129/87
[2018-08-11] MEDS: MORPHINE SULFATE 4 MG/ML CPJ (NOT FOR IM USE) IV PRN (10:46)
[2018-08-11 11:46] VITALS: BP 125/78
== END 2018-08-11 13:18 | disposition home or self-care (01) | DRG 243 ==
LOC: ER 01:41 → 3WST 12:55 → EDBEDREQ 14:03 → ENRESERV 18:44
PROVIDERS: ADMIT Internal Medicine; ATTEND Internal Medicine
DX: K21.9 Gastro-esophageal reflux disease without esophagitis (principal); E46 Unspecified protein-calorie malnutrition; I10 Essential (primary) hypertension; K86.1 Other chronic pancreatitis; F10.10 Alcohol abuse, uncomplicated; E78.2 Mixed hyperlipidemia; Z68.23 Body mass index [BMI] 23.0-23.9, adult; R10.9 Unspecified abdominal pain; J45.909 Unspecified asthma, uncomplicated; Z79.899 Other long term (current) drug therapy; Z82.49 Family history of ischemic heart disease and other diseases of the circulatory system; Z88.0 Allergy status to penicillin; Z88.1 Allergy status to other antibiotic agents; Z88.8 Allergy status to other drugs, medicaments and biological substances
CPT/HCPCS: 36415; 71045; 74177; 78452; 80048; 80061; 80305; 82550; 82553; 83735; 83880; 84439; 84443; 84484; 85379; 93005; 93017; 93306; 96361; 96374; 96375; 99285; A9500; G0482; J1650; J2060; J2270; J2405; J2765; J2785; J7030; Q9967

== ENCOUNTER 2018-09-08 02:42 | Emergency (ER) | payer MEDICAID, OTHER ==
[~2018-09-08] VITALS: Ht 170.2 cm; Wt 74.0 kg
[~2018-09-08 02:42] MED LIST changes: +METO25TA6 MT
[2018-09-08 03:03] VITALS: BP 163/93
== END 2018-09-08 09:48 | disposition left against medical advice (07) ==
LOC: ER 02:42
DX: Z53.21 Procedure and treatment not carried out due to patient leaving prior to being seen by health care provider (principal)

== ENCOUNTER 2018-10-03 17:00 | Inpatient (IN) | payer OTHER, MEDICAID ==
[~2018-10-03] VITALS: Ht 322.6 cm; Wt 71.7 kg
[2018-10-03] MEDS ORDERED: ASPIRIN 81MG TABLET PO ONE (18:45)
[2018-10-03 19:24] LABS: BASOPHILS % 0.5 % (0.0-2.0); EOSINOPHILS % 6.2 % (0.0-5.0); HEMATOCRIT. 39.3 % (42.0-52.0); HEMOGLOBIN. 13.2 g/dL (14.0-18.0); LYMPHOCYTES % 36.4 % (20.0-50.0); MEAN CORPUSCULAR HEMOGLOBIN 31.2 pg (28.0-32.0); MEAN CORPUSCULAR VOLUME 92.9 fL (80.0-94.0); MEAN PLATELET VOLUME 7.6 fl (7.4-10.4); MONOCYTES % 6.2 % (2.0-8.0); NEUTROPHILS % 50.7 % (40.0-76.0); PLATELET 303 x1000/uL (130-400); RED BLOOD CELL COUNT 4.23 mill/uL (4.7-6.1); RED CELL DISTRIBUTION WIDTH 13.5 % (11.6-14.6)
[2018-10-03 19:30] LABS: CHLORIDE 109 mEq/L (98-107)
[2018-10-03] MEDS ORDERED: FAMOTIDINE 20MG TABLET PO ONE (21:45)
[2018-10-03] MEDS ORDERED: ACETAMINOPHEN 650MG/20.3ML UDC GT PRN (23:45)
[2018-10-03] MEDS ORDERED: IPRATROPIUM/ALBUTEROL 0.5-3(2.5)MG/3ML NEB INH PRN (23:45)
[2018-10-03] MEDS ORDERED: DIPHENHYDRAMINE 50MG/ML VIAL IV PRN (23:45)
[2018-10-03] MEDS ORDERED: ACETAMINOPHEN 650MG SUPP PR PRN (23:45)
[2018-10-03] MEDS ORDERED: ACETAMINOPHEN 325MG TABLET PO PRN (23:45)
[2018-10-03] MEDS ORDERED: DOCUSATE SODIUM 100MG CAPSULE PO PRN (23:45)
[2018-10-03] MEDS ORDERED: GUAIFENESIN 200MG/10ML SUGAR FREE UDC PO PRN (23:45)
[2018-10-03] MEDS ORDERED: NA PHOS,M-B/NA PHOS,DI-BA ENEMA 118ML PR PRN (23:45)
[2018-10-03] MEDS ORDERED: ONDANSETRON HCL 4MG/2ML INJ IV PRN (23:45)
[2018-10-03] MEDS ORDERED: CLONIDINE 0.1MG TABLET PO PRN (23:45)
[2018-10-04] MEDS: HYDROCODONE/APAP 7.5/325MG 1 TAB TABLET PO PRN ×3 (00:39→16:18)
[2018-10-04 06:04] LABS: BASOPHILS % 0.6 % (0.0-2.0); EOSINOPHILS % 10.9 % (0.0-5.0); HEMATOCRIT. 36.4 % (42.0-52.0); HEMOGLOBIN. 12.1 g/dL (14.0-18.0); LYMPHOCYTES % 40.5 % (20.0-50.0); MEAN CORPUSCULAR HEMOGLOBIN 30.5 pg (28.0-32.0); MEAN PLATELET VOLUME 7.7 fl (7.4-10.4); MONOCYTES % 7.8 % (2.0-8.0); NEUTROPHILS % 40.2 % (40.0-76.0); PLATELET 271 x1000/uL (130-400); RED BLOOD CELL COUNT 3.96 mill/uL (4.7-6.1); RED CELL DISTRIBUTION WIDTH 13.7 % (11.6-14.6)
[2018-10-04 06:10] LABS: CHLORIDE 109 mEq/L (98-107)
[2018-10-04 06:18] LABS: HDL CHOLESTEROL 67 mg/dL (40-59)
[2018-10-04 06:19] LABS: CREATINE KINASE 179 IU/L (39-308); LDL CHOLESTEROL 160 mg/dL (5-100)
[2018-10-04 06:22] LABS: CREATINE KINASE MB FRACTION 1.5 ng/mL (0.5-3.6)
[2018-10-04 09:30] VITALS: BP 142/78
[2018-10-04] MEDS: ENOXAPARIN 40MG/0.4ML SYR SUBCUT SCH (11:02)
[2018-10-04 12:00] VITALS: BP 123/74
[2018-10-04 16:00] VITALS: BP 93/68
[2018-10-04 16:00] LABS: CREATINE KINASE 156 IU/L (39-308)
[2018-10-04 16:01] LABS: CREATINE KINASE MB FRACTION 1.2 ng/mL (0.5-3.6)
[2018-10-04] MEDS: SODIUM CHLORIDE 0.9% INJ 3ML FLUSH IVF SCH ×2 (16:19→21:02)
[2018-10-04 20:00] VITALS: BP_SYST 102; BP_SYST 131; BP_SYST 133; BP_DIAS 74; BP_DIAS 78; BP_DIAS 89
[2018-10-04] MEDS ORDERED: ZOLPIDEM TARTRATE 5MG TABLET PO PRN (21:00)
[2018-10-04] MEDS ORDERED: ATORVASTATIN CALCIUM 10MG TABLET PO SCH (21:00)
[2018-10-04] MEDS: CLONAZEPAM 0.5MG TABLET PO PRN (21:02)
[2018-10-05] VITALS: BP 103/70
[2018-10-05] MEDS: HYDROCODONE/APAP 7.5/325MG 1 TAB TABLET PO PRN ×4 (00:10→14:08)
[2018-10-05 01:51] LABS: *AMPHETAMINES SCREEN URINE NEGATIVE (NEGATIVE); *BARBITURATES SCREEN URINE NEGATIVE (NEGATIVE); *BENZODIAZEPINES SCREEN URINE PRESUMTIVE POSITIVE (NEGATIVE)
[2018-10-05 01:53] LABS: *COCAINE SCREEN URINE NEGATIVE (NEGATIVE); CANNABINOID URINE SCREEN NEGATIVE (NEGATIVE); METHADONE URINE SCREEN NEGATIVE (NEGATIVE); OPIATES URINE SCREEN PRESUMTIVE POSITIVE (NEGATIVE); PHENCYCLIDINE URINE SCREEN NEGATIVE (NEGATIVE)
[2018-10-05 04:00] VITALS: BP 121/79
[2018-10-05] MEDS: SODIUM CHLORIDE 0.9% INJ 3ML FLUSH IVF SCH ×2 (06:29→14:07)
[2018-10-05] MEDS ORDERED: OMEPRAZOLE 20MG CAPSULE EXTENDED RELEASE PO SCH (07:40)
[2018-10-05 08:00] VITALS: BP_SYST 127; BP_SYST 138; BP_SYST 154; BP_DIAS 79; BP_DIAS 87; BP_DIAS 93
[2018-10-05] MEDS: ENOXAPARIN 40MG/0.4ML SYR SUBCUT SCH (08:45)
[2018-10-05] MEDS: CLONAZEPAM 0.5MG TABLET PO PRN (10:49)
[2018-10-05 12:00] VITALS: BP 125/79
[2018-10-05 14:29] VITALS: BP 125/79
== END 2018-10-05 16:07 | disposition home or self-care (01) | DRG 74 ==
LOC: ER 17:00 → 7WST 22:18 → EDBEDREQTM 22:21 → EDBEDREQ 22:21 → ENRESERV 10-04 08:00
PROVIDERS: ADMIT Family Medicine; ATTEND Family Medicine
DX: G90.8 Other disorders of autonomic nervous system (principal); F11.20 Opioid dependence, uncomplicated; K21.9 Gastro-esophageal reflux disease without esophagitis; R55 Syncope and collapse; K57.90 Diverticulosis of intestine, part unspecified, without perforation or abscess without bleeding; E78.5 Hyperlipidemia, unspecified; G89.29 Other chronic pain; M54.9 Dorsalgia, unspecified; I10 Essential (primary) hypertension; R07.89 Other chest pain; J45.909 Unspecified asthma, uncomplicated; Z82.49 Family history of ischemic heart disease and other diseases of the circulatory system; Z88.6 Allergy status to analgesic agent; Z88.0 Allergy status to penicillin; Z88.8 Allergy status to other drugs, medicaments and biological substances; Z91.018 Allergy to other foods; Z79.899 Other long term (current) drug therapy
CPT/HCPCS: 36415; 71045; 80061; 80305; 80320; 82550; 82553; 82962; 83880; 84484; 93005; 93306; 96365; 96375; 99285; J1650; G0480

== ENCOUNTER 2019-10-28 23:14 | Inpatient (IN) | payer MEDICAID, OTHER ==
[~2019-10-28] VITALS: Ht 170.2 cm; Wt 78.9 kg
[~2019-10-28 23:14] MED LIST changes: -Folic Acid PO; -METR250T PO; -Multivitamins,Ther W-Minerals PO; -OMEP20CA10 PO; +OMEP20CA14 PO; -Thiamine Hcl PO
[2019-10-29] MEDS ORDERED: ACETAMINOPHEN 325MG TABLET PO STA (01:52)
[2019-10-29 01:59] LABS: BASOPHILS % 1.4 % (0.0-2.0); EOSINOPHILS % 4.9 % (0.0-5.0); HEMATOCRIT. 38.6 % (42.0-52.0); HEMOGLOBIN. 13.3 g/dL (14.0-18.0); LYMPHOCYTES % 37.9 % (20.0-50.0); MEAN CORPUSCULAR HEMOGLOBIN 31.6 pg (28.0-32.0); MEAN CORPUSCULAR VOLUME 91.9 fL (80.0-94.0); NEUTROPHILS % 47.8 % (40.0-76.0); PLATELET 280 x1000/uL (130-400); RED CELL DISTRIBUTION WIDTH 14.1 % (11.6-14.6)
[2019-10-29 02:05] LABS: CHLORIDE 108 mEq/L (98-107)
[2019-10-29] MEDS ORDERED: HYDROCODONE/ACETAMINOPHEN 5/325MG TABLET PO STA (02:58)
[2019-10-29] MEDS ORDERED: ONDANSETRON HCL 4MG/2ML INJ IV STA (02:58)
[2019-10-29 08:00] VITALS: BP 146/90
[2019-10-29 08:35] VITALS: BP 146/90
[2019-10-29 09:17] VITALS: BP 146/90
[2019-10-29] MEDS ORDERED: ACETAMINOPHEN 325MG TABLET PO PRN (10:30)
[2019-10-29] MEDS ORDERED: ONDANSETRON HCL 4MG/2ML INJ IV PRN (10:30)
[2019-10-29 11:42] VITALS: BP 122/81
[2019-10-29] MEDS: ASPIRIN 81MG TABLET PO SCH (12:05)
[2019-10-29] MEDS ORDERED: HYDROCODONE/ACETAMINOPHEN 5/325MG TABLET PO PRN (13:15)
[2019-10-29] MEDS ORDERED: LORAZEPAM 2MG/ML CPJ IV NR (14:30)
[2019-10-29] MEDS ORDERED: ENOXAPARIN 40MG/0.4ML SYR SUBCUT SCH (16:00)
[2019-10-29 16:14] VITALS: BP 132/89
[2019-10-29] MEDS: HYDROCODONE/ACETAMINOPHEN 5/325MG TABLET PO PRN ×2 (17:22→21:05)
[2019-10-29 20:00] VITALS: BP 122/82
[2019-10-29] MEDS: ATORVASTATIN CALCIUM 20MG TABLET PO SCH (21:05)
[2019-10-29] MEDS: OMEPRAZOLE 20MG CAPSULE EXTENDED RELEASE PO SCH (21:05)
[2019-10-29] MEDS: BUDESONIDE 0.5MG/2ML NEB HHN SCH (21:07)
[2019-10-29] MEDS ORDERED: ZOLPIDEM TARTRATE 5MG TABLET PO PRN (21:45)
[2019-10-29] MEDS: TEMAZEPAM 15MG CAPSULE PO PRN (23:20)
[2019-10-30] VITALS: BP 117/74
[2019-10-30] MEDS: HYDROCODONE/ACETAMINOPHEN 5/325MG TABLET PO PRN ×6 (01:12→21:27)
[2019-10-30] MEDS: IPRATROPIUM/ALBUTEROL 0.5-3(2.5)MG/3ML NEB HHN PRN (02:43)
[2019-10-30 04:00] VITALS: BP 124/80
[2019-10-30 08:00] VITALS: BP 130/84
[2019-10-30] MEDS: OMEPRAZOLE 20MG CAPSULE EXTENDED RELEASE PO SCH ×2 (08:18→20:43)
[2019-10-30] MEDS: ASPIRIN 81MG TABLET PO SCH (09:34)
[2019-10-30] MEDS: BUDESONIDE 0.5MG/2ML NEB HHN SCH (10:54)
[2019-10-30 12:00] VITALS: BP 144/102
[2019-10-30] MEDS: ALPRAZOLAM 0.5 MG TABLET PO PRN ×2 (15:01→23:11)
[2019-10-30 15:33] LABS: PROTHROMBIN TIME 10.7 sec (9.6-11.0)
[2019-10-30 16:00] VITALS: BP 123/69
[2019-10-30 16:01] LABS: *AMPHETAMINES SCREEN URINE NEGATIVE (NEGATIVE); *BARBITURATES SCREEN URINE NEGATIVE (NEGATIVE); *BENZODIAZEPINES SCREEN URINE PRESUMTIVE POSITIVE (NEGATIVE); *COCAINE SCREEN URINE NEGATIVE (NEGATIVE); CANNABINOID URINE SCREEN NEGATIVE (NEGATIVE); OPIATES URINE SCREEN PRESUMTIVE POSITIVE (NEGATIVE); PHENCYCLIDINE URINE SCREEN NEGATIVE (NEGATIVE)
[2019-10-30 16:03] LABS: METHADONE URINE SCREEN NEGATIVE (NEGATIVE)
[2019-10-30] MEDS: DEXAMETHASONE 4MG/ML 1ML VIAL IV SCH (17:43)
[2019-10-30 20:00] VITALS: BP 152/95
[2019-10-30] MEDS: ATORVASTATIN CALCIUM 20MG TABLET PO SCH (20:43)
[2019-10-31] VITALS: BP 130/82
[2019-10-31] MEDS: DEXAMETHASONE 4MG/ML 1ML VIAL IV SCH ×4 (00:45→17:32)
[2019-10-31 04:00] VITALS: BP 154/87
[2019-10-31] MEDS: HYDROCODONE/ACETAMINOPHEN 5/325MG TABLET PO PRN ×5 (04:49→21:44)
[2019-10-31] MEDS: OMEPRAZOLE 20MG CAPSULE EXTENDED RELEASE PO SCH ×2 (06:43→20:40)
[2019-10-31 08:00] VITALS: BP 131/81
[2019-10-31] MEDS: ALPRAZOLAM 0.5 MG TABLET PO PRN ×2 (08:49→17:32)
[2019-10-31 12:00] VITALS: BP 124/84
[2019-10-31 16:00] VITALS: BP 144/96
[2019-10-31 19:57] VITALS: BP 141/75
[2019-10-31] MEDS: METOPROLOL TARTRATE 25MG TABLET PO SCH (20:38)
[2019-10-31] MEDS: ATORVASTATIN CALCIUM 20MG TABLET PO SCH (20:38)
[2019-10-31] MEDS: TEMAZEPAM 15MG CAPSULE PO PRN (21:44)
[2019-11-01] VITALS: BP 117/78
[2019-11-01] MEDS: DEXAMETHASONE 4MG/ML 1ML VIAL IV SCH ×4 (00:09→17:34)
[2019-11-01] MEDS: ALPRAZOLAM 0.5 MG TABLET PO PRN ×3 (01:38→20:19)
[2019-11-01] MEDS: HYDROCODONE/ACETAMINOPHEN 5/325MG TABLET PO PRN ×5 (03:23→21:50)
[2019-11-01 04:00] VITALS: BP 121/73
[2019-11-01] MEDS: OMEPRAZOLE 20MG CAPSULE EXTENDED RELEASE PO SCH (06:29)
[2019-11-01 08:00] VITALS: BP 135/87
[2019-11-01] MEDS: AMLODIPINE 10MG TABLET PO SCH (08:13)
[2019-11-01] MEDS: METOPROLOL TARTRATE 25MG TABLET PO SCH ×2 (08:14→20:19)
[2019-11-01 12:00] VITALS: BP 114/70
[2019-11-01 16:00] VITALS: BP 140/85
[2019-11-01 20:00] VITALS: BP 144/82
[2019-11-01] MEDS: ATORVASTATIN CALCIUM 20MG TABLET PO SCH (20:19)
[2019-11-01] MEDS: FAMOTIDINE 20MG TABLET PO SCH (21:00)
[2019-11-02] VITALS (25 sets, daily range): BP systolic 109–145; BP diastolic 56–88
[2019-11-02] MEDS: DEXAMETHASONE 4MG/ML 1ML VIAL IV SCH ×4 (00:17→17:20)
[2019-11-02] MEDS ORDERED: LIDOCAINE HCL/EPINEPHRINE 1%-EPI 1:100,000 20 ML VIAL ONE (06:31)
[2019-11-02] MEDS ORDERED: THROMBIN (BOVINE) 5000 UNITS/VIAL TOP ONE (06:31)
[2019-11-02] MEDS ORDERED: BACITRACIN 50,000 UNITS/VIAL ONE (06:32)
[2019-11-02 06:49] LABS: HEMATOCRIT. 34.8 % (42.0-52.0); HEMOGLOBIN. 11.8 g/dL (14.0-18.0); MEAN CORPUSCULAR HEMOGLOBIN 31.4 pg (28.0-32.0); MEAN CORPUSCULAR VOLUME 92.2 fL (80.0-94.0); MEAN PLATELET VOLUME 8.7 fl (7.4-10.4); PLATELET 248 x1000/uL (130-400); RED BLOOD CELL COUNT 3.77 mill/uL (4.7-6.1); RED CELL DISTRIBUTION WIDTH 14.3 % (11.6-14.6)
[2019-11-02] MEDS ORDERED: MIDAZOLAM HCL 2 MG/2 ML VIAL ONE (06:55)
[2019-11-02] MEDS ORDERED: GLYCOPYRROLATE 0.2 MG/ML 2ML VIAL ONE ×2 (06:55→08:36)
[2019-11-02] MEDS ORDERED: FENTANYL CITRATE/PF 50MCG/ML 2ML VIAL ONE (06:55)
[2019-11-02] MEDS ORDERED: ROCURONIUM BROMIDE 10MG/ML VIAL 5ML IV ONE (06:55)
[2019-11-02] MEDS ORDERED: NEOSTIGMINE METHYLSULFATE 1MG/ML 10 ML VIAL ONE (06:55)
[2019-11-02] MEDS ORDERED: PROPOFOL 200MG/20ML VIAL IV ONE (06:55)
[2019-11-02] MEDS ORDERED: CLINDAMYCIN 900 MG PREMIX 50 ML IV ONE (07:02)
[2019-11-02] MEDS ORDERED: ONDANSETRON HCL 4MG/2ML INJ ONE (07:12)
[2019-11-02] MEDS ORDERED: DEXAMETHASONE 4MG/ML 1ML VIAL ONE (07:12)
[2019-11-02] MEDS ORDERED: NICARDIPINE 100 MG in SODIUM CHLORIDE 0.9% 60 ML IV PRN (07:15)
[2019-11-02] MEDS ORDERED: CLINDAMYCIN 600 MG in DEXTROSE 5% WATER 50 ML IV SCH (07:15)
[2019-11-02] MEDS ORDERED: HYDROMORPHONE HCL/PF 2MG/ML (OR) ONE (07:33)
[2019-11-02] MEDS ORDERED: LABETALOL 5MG/ML SYR 20 MG/4 ML SYRINGE IV PRN (07:45)
[2019-11-02] MEDS ORDERED: T IV PRN (07:45)
[2019-11-02] MEDS ORDERED: MEPERIDINE HCL/PF 25MG/ML CPJ IV PRN (07:45)
[2019-11-02 08:33] LABS: CHLORIDE 108 mEq/L (98-107)
[2019-11-02] MEDS: AMLODIPINE 10MG TABLET PO SCH (08:41)
[2019-11-02] MEDS: METOPROLOL TARTRATE 25MG TABLET PO SCH ×2 (08:41→21:00)
[2019-11-02] MEDS: FAMOTIDINE 20MG TABLET PO SCH ×2 (08:41→21:33)
[2019-11-02] MEDS ORDERED: NALOXONE INJ IV PRN (09:15)
[2019-11-02] MEDS ORDERED: ONDANSETRON INJ IV PRN (09:15)
[2019-11-02] MEDS: HYDROMORPHONE HCL/PF 2MG/ML CPJ IV PRN ×4 (09:15→10:36)
[2019-11-02] MEDS: HYDROMORPHONE PCA 10MG/50ML IV PRN (09:24)
[2019-11-02 11:24] LABS: PLATELET ESTIMATE NORMAL
[2019-11-02] MEDS: MORPHINE SULFATE 4 MG/ML CPJ (NOT FOR IM USE) IV PRN (11:38)
[2019-11-02] MEDS: DEXT 5%/LACTATED RINGERS 1,000 ML IV SCH (12:28)
[2019-11-02] MEDS: ALPRAZOLAM 0.5 MG TABLET PO PRN ×2 (15:59→21:33)
[2019-11-02] MEDS: CLINDAMYCIN 600MG PREMIX 50 ML IV SCH (17:06)
[2019-11-02] MEDS: ATORVASTATIN CALCIUM 20MG TABLET PO SCH (21:32)
[2019-11-03] VITALS (41 sets, daily range): BP systolic 120–165; BP diastolic 37–98
[2019-11-03] MEDS: CLINDAMYCIN 600MG PREMIX 50 ML IV SCH
[2019-11-03] MEDS: DEXT 5%/LACTATED RINGERS 1,000 ML IV SCH ×4 (00:23→23:24)
[2019-11-03] MEDS: DEXAMETHASONE 4MG/ML 1ML VIAL IV SCH ×5 (00:23→23:24)
[2019-11-03] MEDS: TEMAZEPAM 15MG CAPSULE PO PRN ×2 (00:57→11:01)
[2019-11-03] MEDS: ALPRAZOLAM 0.5 MG TABLET PO PRN ×3 (05:15→21:08)
[2019-11-03 06:45] LABS: HEMATOCRIT. 34.8 % (42.0-52.0); HEMOGLOBIN. 11.6 g/dL (14.0-18.0); MEAN CORPUSCULAR HEMOGLOBIN 31.1 pg (28.0-32.0); MEAN CORPUSCULAR VOLUME 93.4 fL (80.0-94.0); MEAN PLATELET VOLUME 8.8 fl (7.4-10.4); PLATELET 236 x1000/uL (130-400); RED BLOOD CELL COUNT 3.73 mill/uL (4.7-6.1); RED CELL DISTRIBUTION WIDTH 13.8 % (11.6-14.6)
[2019-11-03 07:45] LABS: CHLORIDE 105 mEq/L (98-107)
[2019-11-03] MEDS: AMLODIPINE 10MG TABLET PO SCH (09:12)
[2019-11-03] MEDS: METOPROLOL TARTRATE 25MG TABLET PO SCH ×2 (09:13→21:08)
[2019-11-03] MEDS: FAMOTIDINE 20MG TABLET PO SCH ×2 (09:13→21:08)
[2019-11-03] MEDS: HYDROMORPHONE PCA 10MG/50ML IV PRN (09:40)
[2019-11-03] MEDS ORDERED: CLONIDINE 0.1MG TABLET PO PRN (11:30)
[2019-11-03 11:36] LABS: PLATELET ESTIMATE NORMAL
[2019-11-03] MEDS: DOCUSATE SODIUM 250MG CAPSULE PO SCH (14:06)
[2019-11-03] MEDS: IPRATROPIUM/ALBUTEROL 0.5-3(2.5)MG/3ML NEB HHN PRN (15:44)
[2019-11-03] MEDS: ATORVASTATIN CALCIUM 20MG TABLET PO SCH (21:08)
[2019-11-04] VITALS: BP 140/78
[2019-11-04 04:00] VITALS: BP 142/76
[2019-11-04] MEDS: ALPRAZOLAM 0.5 MG TABLET PO PRN ×2 (05:20→13:10)
[2019-11-04] MEDS: DEXAMETHASONE 4MG/ML 1ML VIAL IV SCH (05:20)
[2019-11-04 08:00] VITALS: BP 142/86
[2019-11-04] MEDS: METOPROLOL TARTRATE 25MG TABLET PO SCH ×2 (09:00→21:15)
[2019-11-04] MEDS: DOCUSATE SODIUM 250MG CAPSULE PO SCH (09:23)
[2019-11-04] MEDS: AMLODIPINE 10MG TABLET PO SCH (09:23)
[2019-11-04] MEDS: FAMOTIDINE 20MG TABLET PO SCH ×2 (09:23→21:15)
[2019-11-04 12:00] VITALS: BP 151/85
[2019-11-04] MEDS ORDERED: IPRATROPIUM/ALBUTEROL 0.5-3(2.5)MG/3ML NEB HHN NR (14:15)
[2019-11-04] MEDS: HYDROCODONE/ACETAMINOPHEN 10/325MG TABLET PO PRN ×2 (14:50→20:53)
[2019-11-04 16:00] VITALS: BP 119/60
[2019-11-04] MEDS: MORPHINE SULFATE 4 MG/ML CPJ (NOT FOR IM USE) IV PRN (18:10)
[2019-11-04 20:00] VITALS: BP 131/79
[2019-11-04] MEDS: ATORVASTATIN CALCIUM 20MG TABLET PO SCH (21:14)
[2019-11-04] MEDS: TEMAZEPAM 15MG CAPSULE PO PRN (22:04)
[2019-11-05] VITALS: BP 125/80
[2019-11-05] MEDS: HYDROCODONE/ACETAMINOPHEN 10/325MG TABLET PO PRN ×6 (02:16→22:52)
[2019-11-05 04:00] VITALS: BP 122/81
[2019-11-05] MEDS: DOCUSATE SODIUM 250MG CAPSULE PO SCH (09:15)
[2019-11-05] MEDS: AMLODIPINE 10MG TABLET PO SCH (09:15)
[2019-11-05] MEDS: FAMOTIDINE 20MG TABLET PO SCH ×2 (09:15→20:49)
[2019-11-05] MEDS: METOPROLOL TARTRATE 25MG TABLET PO SCH ×2 (09:16→20:49)
[2019-11-05 10:31] VITALS: BP 144/83
[2019-11-05 12:00] VITALS: BP 130/80
[2019-11-05] MEDS: ALPRAZOLAM 0.5 MG TABLET PO PRN (13:40)
[2019-11-05 15:56] VITALS: BP 120/70
[2019-11-05 20:00] VITALS: BP 131/80
[2019-11-05] MEDS: ATORVASTATIN CALCIUM 20MG TABLET PO SCH (20:49)
[2019-11-06] VITALS: BP 121/76
[2019-11-06] MEDS: ALPRAZOLAM 0.5 MG TABLET PO PRN ×3 (00:15→17:53)
[2019-11-06] MEDS: HYDROCODONE/ACETAMINOPHEN 10/325MG TABLET PO PRN ×5 (03:03→20:49)
[2019-11-06 04:00] VITALS: BP 111/62
[2019-11-06 08:00] VITALS: BP 120/77
[2019-11-06] MEDS: METOPROLOL TARTRATE 25MG TABLET PO SCH ×2 (08:13→20:49)
[2019-11-06] MEDS: DOCUSATE SODIUM 250MG CAPSULE PO SCH (08:45)
[2019-11-06] MEDS: FAMOTIDINE 20MG TABLET PO SCH ×2 (08:46→20:49)
[2019-11-06] MEDS: AMLODIPINE 10MG TABLET PO SCH (08:46)
[2019-11-06 12:00] VITALS: BP 96/69
[2019-11-06 16:00] VITALS: BP 135/85
[2019-11-06 20:00] VITALS: BP 127/80
[2019-11-06] MEDS: ATORVASTATIN CALCIUM 20MG TABLET PO SCH (20:49)
[2019-11-06] MEDS: TEMAZEPAM 15MG CAPSULE PO PRN (22:43)
[2019-11-07] VITALS: BP 124/76
[2019-11-07] MEDS: ALPRAZOLAM 0.5 MG TABLET PO PRN ×3 (02:39→22:38)
[2019-11-07] MEDS: HYDROCODONE/ACETAMINOPHEN 10/325MG TABLET PO PRN ×5 (02:40→20:59)
[2019-11-07 04:00] VITALS: BP 138/69
[2019-11-07 07:46] LABS: CHLORIDE 105 mEq/L (98-107); HEMATOCRIT. 33.9 % (42.0-52.0); HEMOGLOBIN. 11.6 g/dL (14.0-18.0); MEAN CORPUSCULAR HEMOGLOBIN 31.8 pg (28.0-32.0); MEAN CORPUSCULAR VOLUME 92.8 fL (80.0-94.0); MEAN PLATELET VOLUME 8.4 fl (7.4-10.4); PLATELET 202 x1000/uL (130-400); RED BLOOD CELL COUNT 3.65 mill/uL (4.7-6.1); RED CELL DISTRIBUTION WIDTH 13.9 % (11.6-14.6)
[2019-11-07 08:00] VITALS: BP 139/84
[2019-11-07] MEDS: FAMOTIDINE 20MG TABLET PO SCH ×2 (08:25→20:59)
[2019-11-07] MEDS: DOCUSATE SODIUM 250MG CAPSULE PO SCH (08:25)
[2019-11-07] MEDS: METOPROLOL TARTRATE 25MG TABLET PO SCH ×2 (08:25→20:58)
[2019-11-07] MEDS: AMLODIPINE 10MG TABLET PO SCH (08:25)
[2019-11-07 12:00] VITALS: BP 125/81
[2019-11-07 13:48] LABS: ATYPICAL LYMPHOCYTES 1
[2019-11-07 13:49] LABS: PLATELET ESTIMATE NORMAL
[2019-11-07 16:00] VITALS: BP 106/62
[2019-11-07 20:00] VITALS: BP 136/78
[2019-11-07] MEDS: ATORVASTATIN CALCIUM 20MG TABLET PO SCH (20:58)
[2019-11-08] VITALS: BP 119/68
[2019-11-08] MEDS: HYDROCODONE/ACETAMINOPHEN 10/325MG TABLET PO PRN ×6 (01:05→22:01)
[2019-11-08 04:00] VITALS: BP 115/74
[2019-11-08 08:00] VITALS: BP 118/70
[2019-11-08] MEDS: FAMOTIDINE 20MG TABLET PO SCH ×2 (08:22→20:23)
[2019-11-08] MEDS: DOCUSATE SODIUM 250MG CAPSULE PO SCH (08:22)
[2019-11-08] MEDS: ALPRAZOLAM 0.5 MG TABLET PO PRN ×2 (08:22→16:12)
[2019-11-08] MEDS: AMLODIPINE 10MG TABLET PO SCH (08:22)
[2019-11-08] MEDS: METOPROLOL TARTRATE 25MG TABLET PO SCH ×2 (08:22→20:25)
[2019-11-08 12:00] VITALS: BP 109/67
[2019-11-08 16:00] VITALS: BP 113/68
[2019-11-08 20:00] VITALS: BP 125/79
[2019-11-08] MEDS: ATORVASTATIN CALCIUM 20MG TABLET PO SCH (20:23)
[2019-11-08] MEDS: TEMAZEPAM 15MG CAPSULE PO PRN (20:23)
[2019-11-09] VITALS: BP 114/65
[2019-11-09] MEDS: ALPRAZOLAM 0.5 MG TABLET PO PRN ×2 (00:35→09:27)
[2019-11-09] MEDS: HYDROCODONE/ACETAMINOPHEN 10/325MG TABLET PO PRN ×3 (03:03→10:48)
[2019-11-09 04:00] VITALS: BP 110/73
[2019-11-09 08:00] VITALS: BP 124/77
[2019-11-09] MEDS: FAMOTIDINE 20MG TABLET PO SCH (08:26)
[2019-11-09] MEDS: METOPROLOL TARTRATE 25MG TABLET PO SCH (08:26)
[2019-11-09] MEDS: AMLODIPINE 10MG TABLET PO SCH (08:26)
[2019-11-09] MEDS: DOCUSATE SODIUM 250MG CAPSULE PO SCH (08:26)
[2019-11-09 11:57] VITALS: BP 125/79
[2019-11-09 12:00] VITALS: BP 125/79
== END 2019-11-09 13:55 | DRG 321 ==
LOC: ER 23:57 → 6WST 10-29 03:52 → EDBEDREQTM 10-29 03:55 → EDBEDREQ 10-29 03:55 → ENRESERV 10-29 07:33 → 6EST 10-30 22:29 → 5EST 11-02 13:20 → 6EST 11-03 16:34
PROVIDERS: ADMIT Internal Medicine; ATTEND Internal Medicine
PROC: 0RG10A0 Fusion of Cervical Vertebral Joint with Interbody Fusion Device, Anterior Approach, Anterior Column, Open Approach (ICD-10-PCS; principal; 2019-11-02)
PROC: 00NW0ZZ Release Cervical Spinal Cord, Open Approach (ICD-10-PCS; 2019-11-02)
PROC: 0RB30ZZ Excision of Cervical Vertebral Disc, Open Approach (ICD-10-PCS; 2019-11-02)
PROC: 4A11X4G Monitoring of Peripheral Nervous Electrical Activity, Intraoperative, External Approach (ICD-10-PCS; 2019-11-02)
DX: M47.12 Other spondylosis with myelopathy, cervical region (principal); G82.50 Quadriplegia, unspecified; M50.01 Cervical disc disorder with myelopathy, high cervical region; E87.8 Other disorders of electrolyte and fluid balance, not elsewhere classified; I36.1 Nonrheumatic tricuspid (valve) insufficiency; M41.9 Scoliosis, unspecified; M51.26 Other intervertebral disc displacement, lumbar region; M48.02 Spinal stenosis, cervical region; M43.16 Spondylolisthesis, lumbar region; D64.9 Anemia, unspecified; E78.5 Hyperlipidemia, unspecified; I10 Essential (primary) hypertension; J45.909 Unspecified asthma, uncomplicated; K21.9 Gastro-esophageal reflux disease without esophagitis; K44.9 Diaphragmatic hernia without obstruction or gangrene; M25.78 Osteophyte, vertebrae; M54.30 Sciatica, unspecified side; G89.29 Other chronic pain; R53.81 Other malaise; R73.9 Hyperglycemia, unspecified; R26.9 Unspecified abnormalities of gait and mobility; M48.061 Spinal stenosis, lumbar region without neurogenic claudication; Z82.49 Family history of ischemic heart disease and other diseases of the circulatory system; Z88.0 Allergy status to penicillin; Z88.8 Allergy status to other drugs, medicaments and biological substances; Z88.6 Allergy status to analgesic agent; Z91.010 Allergy to peanuts; Z79.891 Long term (current) use of opiate analgesic; Z79.899 Other long term (current) drug therapy; Z56.0 Unemployment, unspecified; Z98.1 Arthrodesis status; Z91.02 Food additives allergy status; Z90.49 Acquired absence of other specified parts of digestive tract
CPT/HCPCS: 36415; 71045; 72040; 72141; 72148; 76000; 80048; 80053; 80305; 83880; 84484; 85025; 88304; 88311; 92610; 93005; 93306; 94640; 95925; 95926; 95928; 95929; 97110; 97116; 97163; 97166; 97530; 97535; 99285; C1713; J1100; J1170; J1650; J2060; J2250; J2270; J2405; J2704; J2710; J3010; J3490; J7121; J7626; L0172

== ENCOUNTER 2019-11-16 09:55 | Emergency (ER) | payer MEDICAID, OTHER ==
[~2019-11-16] VITALS: Ht 170.2 cm; Wt 77.0 kg
[~2019-11-16 09:55] MED LIST changes: -ATOR10TA PO; -ATOR10TA69 PO
[2019-11-16] MEDS ORDERED: ACETAMINOPHEN 325MG TABLET PO ONE (10:45)
[2019-11-16] MEDS ORDERED: LORAZEPAM 2MG/ML CPJ IM ONE (10:45)
[2019-11-16 12:23] VITALS: BP 148/98
== END 2019-11-16 12:26 | disposition home or self-care (01) ==
LOC: ER 09:55
DX: G89.18 Other acute postprocedural pain (principal); M54.2 Cervicalgia; R20.2 Paresthesia of skin; I10 Essential (primary) hypertension
CPT/HCPCS: 72141; 96372; 99284; J2060

== ENCOUNTER 2019-12-27 08:40 | Emergency (ER) | payer MEDICAID, OTHER ==
[~2019-12-27] VITALS: Ht 167.6 cm; Wt 74.0 kg
[2019-12-27] MEDS ORDERED: HYDROCODONE/APAP 7.5/325MG 1 TAB TABLET PO ONE (10:45)
[2019-12-27 11:21] VITALS: BP 138/91
== END 2019-12-27 11:23 | disposition home or self-care (01) ==
LOC: ER 09:07
DX: M54.2 Cervicalgia (principal); M54.30 Sciatica, unspecified side; Z88.0 Allergy status to penicillin; Z88.6 Allergy status to analgesic agent
CPT/HCPCS: 99283; Z7610

== ENCOUNTER 2019-12-28 03:07 | Inpatient (IN) | payer MEDICAID, OTHER ==
[~2019-12-28] VITALS: Ht 167.6 cm; Wt 69.5 kg
[2019-12-28] MEDS ORDERED: MORPHINE SULFATE 4 MG/ML CPJ (NOT FOR IM USE) IV STA (03:55)
[2019-12-28] MEDS ORDERED: ONDANSETRON HCL 4MG/2ML INJ IV STA (03:55)
[2019-12-28 03:58] LABS: EOSINOPHILS % 7.7 % (0.0-5.0); HEMATOCRIT. 36.9 % (42.0-52.0); HEMOGLOBIN. 12.5 g/dL (14.0-18.0); LYMPHOCYTES % 41.7 % (20.0-50.0); MEAN CORPUSCULAR HEMOGLOBIN 31.2 pg (28.0-32.0); MEAN CORPUSCULAR VOLUME 91.9 fL (80.0-94.0); MEAN PLATELET VOLUME 7.9 fl (7.4-10.4); MONOCYTES % 7.6 % (2.0-8.0); PLATELET 266 x1000/uL (130-400); RED BLOOD CELL COUNT 4.02 mill/uL (4.7-6.1); RED CELL DISTRIBUTION WIDTH 13.8 % (11.6-14.6)
[2019-12-28] MEDS ORDERED: NITROGLYCERIN OINT 1GM/INCH UDPKT TD ONE (04:00)
[2019-12-28 04:06] LABS: CHLORIDE 111 mEq/L (98-107)
[2019-12-28 04:10] LABS: INR 0.9; PROTHROMBIN TIME 10.1 sec (9.6-11.0)
[2019-12-28] MEDS ORDERED: IOHEXOL-350 100 ML BOTTLE ONE (05:32)
[2019-12-28 06:03] LABS: CLARITY URINE CLEAR (CLEAR); COLOR URINE YELLOW (YELLOW); KETONES URINE NEGATIVE (NEGATIVE); LEUKOCYTE ESTERASE URINE NEGATIVE (NEGATIVE); NITRITE URINE NEGATIVE (NEGATIVE); OCCULT BLOOD URINE NEGATIVE (NEGATIVE); PH URINE 5.5 (4.5-8.0); PROTEIN URINE TRACE (NEGATIVE); SPECIFIC GRAVITY URINE 1.063 (1.005-1.030); UROBILINOGEN URINE 0.2 E.U./dL (0.2-1.0)
[2019-12-28] MEDS ORDERED: MORPHINE SULFATE 4 MG/ML CPJ (NOT FOR IM USE) IV ONE (07:30)
[2019-12-28] MEDS ORDERED: ONDANSETRON HCL 4MG/2ML INJ IV PRN (08:45)
[2019-12-28] MEDS ORDERED: FAMOTIDINE 20MG/2ML VIAL IV NR (08:45)
[2019-12-28] MEDS ORDERED: ACETAMINOPHEN 325MG TABLET PO PRN (08:45)
[2019-12-28] MEDS: HYDROCODONE/ACETAMINOPHEN 10/325MG TABLET PO PRN ×4 (10:54→22:15)
[2019-12-28] MEDS ORDERED: POTASSIUM CHLORIDE 20MEQ TABLET SR PO ONE (11:45)
[2019-12-28] MEDS ORDERED: FAMOTIDINE 20MG TABLET PO SCH (21:00)
[2019-12-28 21:15] VITALS: BP 140/86
[2019-12-28 22:00] VITALS: BP 140/86
[2019-12-29 00:47] VITALS: BP 116/71
[2019-12-29 04:00] VITALS: BP 110/74
[2019-12-29] MEDS: HYDROCODONE/ACETAMINOPHEN 10/325MG TABLET PO PRN ×4 (05:16→23:17)
[2019-12-29 08:00] VITALS: BP 137/67
[2019-12-29 16:00] VITALS: BP 139/72
[2019-12-29] MEDS: OMEPRAZOLE 20MG CAPSULE EXTENDED RELEASE PO SCH (17:11)
[2019-12-29 20:00] VITALS: BP 133/84
[2019-12-30] VITALS: BP 110/65
[2019-12-30 04:00] VITALS: BP 126/91
[2019-12-30] MEDS: HYDROCODONE/ACETAMINOPHEN 10/325MG TABLET PO PRN (05:30)
[2019-12-30] MEDS: OMEPRAZOLE 20MG CAPSULE EXTENDED RELEASE PO SCH (06:41)
[2019-12-30 08:11] VITALS: BP 140/88
[2019-12-30] MEDS ORDERED: HYDR-4001 MT ×2 (08:11)
[2019-12-30 10:22] VITALS: BP 140/88
== END 2019-12-30 12:23 | disposition home health service (06) | DRG 203 ==
LOC: ER 03:07 → ENRESERV 20:16 → 6WST 21:16
PROVIDERS: ADMIT Internal Medicine; ATTEND Internal Medicine
DX: R07.89 Other chest pain (principal); E87.8 Other disorders of electrolyte and fluid balance, not elsewhere classified; D64.9 Anemia, unspecified; J45.909 Unspecified asthma, uncomplicated; E87.6 Hypokalemia; I10 Essential (primary) hypertension; Z82.49 Family history of ischemic heart disease and other diseases of the circulatory system; Z90.5 Acquired absence of kidney; Z91.010 Allergy to peanuts; Z91.018 Allergy to other foods; Z88.0 Allergy status to penicillin; Z88.8 Allergy status to other drugs, medicaments and biological substances; Z88.6 Allergy status to analgesic agent; Z79.899 Other long term (current) drug therapy; Z98.1 Arthrodesis status
CPT/HCPCS: 36415; 71045; 71275; 80053; 81003; 83880; 84484; 85025; 93005; 97162; 99291; J2270; J2405; J3490; L0172; Q9967

== ENCOUNTER 2020-06-12 08:18 | Emergency (ER) | payer MEDICAID, OTHER ==
[~2020-06-12] VITALS: Ht 170.2 cm; Wt 80.0 kg
[~2020-06-12 08:18] MED LIST changes: +ALBU6.7H9 INH; -CLON0.5T PO; +HYDR-4001 PO; +HYDR-4009 PO; -HYDR-523 PO; +L25 PO; -METO25TA6 MT; +TAMS-11 PO
[2020-06-12] MEDS ORDERED: MORPHINE SULFATE 10 MG/ML CPJ IM ONE (08:45)
[2020-06-12 09:35] VITALS: BP 168/98
== END 2020-06-12 11:01 | disposition home or self-care (01) ==
LOC: ER 08:18
DX: M54.5 Low back pain (principal); J45.909 Unspecified asthma, uncomplicated; I10 Essential (primary) hypertension; Z79.899 Other long term (current) drug therapy; Z88.0 Allergy status to penicillin; Z88.5 Allergy status to narcotic agent; Z88.6 Allergy status to analgesic agent
CPT/HCPCS: 72125; 72128; 72131; 96372; 99285; J2270

== ENCOUNTER 2020-06-26 11:21 | Emergency (ER) | payer MEDICAID, OTHER ==
[~2020-06-26] VITALS: Ht 170.2 cm; Wt 75.0 kg
[2020-06-26] MEDS ORDERED: ASPIRIN 81MG TABLET PO ONE (14:15)
[2020-06-26] MEDS: NITROGLYCERIN 0.4MG TABLET SL SL PRN ×2 (15:13→19:48)
[2020-06-26 15:28] LABS: BASOPHILS % 0.7 % (0.0-2.0); EOSINOPHILS % 4.2 % (0.0-5.0); HEMOGLOBIN. 12.7 g/dL (14.0-18.0); LYMPHOCYTES % 24.3 % (20.0-50.0); MONOCYTES % 4.6 % (2.0-8.0); NEUTROPHILS % 66.2 % (40.0-76.0); RED BLOOD CELL COUNT 4.09 mill/uL (4.7-6.1); RED CELL DISTRIBUTION WIDTH 13.4 % (11.6-14.6)
[2020-06-26 15:33] LABS: CHLORIDE 110 mEq/L (98-107)
[2020-06-26 15:37] LABS: D-DIMER 1.2 mg/L FEU (<0.50); PARTIAL THROMBOPLASTIN TIME 25.4 sec (23.4-31.0); PROTHROMBIN TIME 10.2 sec (9.6-11.0)
[2020-06-26 15:59] LABS: PLATELET 181 x1000/uL (130-400)
[2020-06-26] MEDS: HYDROCODONE/ACETAMINOPHEN 5/325MG TABLET PO PRN (22:17)
[2020-06-26] MEDS ORDERED: IOHEXOL-350 100 ML BOTTLE ONE (22:35)
[2020-06-26] MEDS ORDERED: ENOXAPARIN 40MG/0.4ML SYR SUBCUT SCH (23:00)
[2020-06-27 01:09] LABS: CREATINE KINASE MB FRACTION 1.9 ng/mL (0.5-3.6)
[2020-06-27 02:06] LABS: CANNABINOID URINE SCREEN NEGATIVE (NEGATIVE); OPIATES URINE SCREEN NEGATIVE (NEGATIVE); PHENCYCLIDINE URINE SCREEN NEGATIVE (NEGATIVE)
[2020-06-27 02:08] LABS: *AMPHETAMINES SCREEN URINE NEGATIVE (NEGATIVE); *BARBITURATES SCREEN URINE NEGATIVE (NEGATIVE); *BENZODIAZEPINES SCREEN URINE PRESUMTIVE POSITIVE (NEGATIVE); *COCAINE SCREEN URINE NEGATIVE (NEGATIVE); METHADONE URINE SCREEN NEGATIVE (NEGATIVE)
[2020-06-27] MEDS ORDERED: IOHEXOL-350 100 ML BOTTLE ONE (02:34)
[2020-06-27] MEDS: HYDROCODONE/ACETAMINOPHEN 5/325MG TABLET PO PRN (04:45)
[2020-06-27 06:45] VITALS: BP 150/90
== END 2020-06-27 06:46 | disposition home or self-care (01) ==
LOC: ER 11:21 → CANBEDREQ 06-27 06:59
DX: R07.2 Precordial pain (principal); N28.1 Cyst of kidney, acquired; I10 Essential (primary) hypertension; K51.80 Other ulcerative colitis without complications; J45.909 Unspecified asthma, uncomplicated; E78.00 Pure hypercholesterolemia, unspecified
CPT/HCPCS: 36415; 71045; 71275; 80053; 80061; 80305; 80307; 82553; 83880; 84484; 85025; 85379; 85610; 85730; 93005; 96372; 99285; J1650; Q9967; Z7610

== ENCOUNTER 2020-07-02 19:16 | Emergency (ER) | payer MEDICAID, OTHER ==
[~2020-07-02] VITALS: Ht 170.2 cm; Wt 74.0 kg
[2020-07-02 22:50] LABS: CLARITY URINE CLEAR (CLEAR); COLOR URINE YELLOW (YELLOW); KETONES URINE TRACE (NEGATIVE); LEUKOCYTE ESTERASE URINE NEGATIVE (NEGATIVE); NITRITE URINE NEGATIVE (NEGATIVE); OCCULT BLOOD URINE TRACE (NEGATIVE); PROTEIN URINE 1+ (NEGATIVE); SPECIFIC GRAVITY URINE 1.037 (1.005-1.030); UROBILINOGEN URINE 0.2 E.U./dL (0.2-1.0)
[2020-07-02 23:17] LABS: *AMPHETAMINES SCREEN URINE NEGATIVE (NEGATIVE); *BARBITURATES SCREEN URINE NEGATIVE (NEGATIVE); *BENZODIAZEPINES SCREEN URINE PRESUMTIVE POSITIVE (NEGATIVE); *COCAINE SCREEN URINE NEGATIVE (NEGATIVE); OPIATES URINE SCREEN PRESUMTIVE POSITIVE (NEGATIVE)
[2020-07-02 23:18] LABS: CANNABINOID URINE SCREEN NEGATIVE (NEGATIVE); METHADONE URINE SCREEN NEGATIVE (NEGATIVE); PHENCYCLIDINE URINE SCREEN NEGATIVE (NEGATIVE)
[2020-07-02] MEDS ORDERED: HYDROCODONE/ACETAMINOPHEN 10/325MG TABLET PO ONE (23:45)
[2020-07-03 01:08] VITALS: BP 148/80
== END 2020-07-03 01:11 | disposition home or self-care (01) ==
LOC: ER 19:16
DX: R10.13 Epigastric pain (principal); K51.90 Ulcerative colitis, unspecified, without complications; I10 Essential (primary) hypertension; Z88.0 Allergy status to penicillin; Z88.6 Allergy status to analgesic agent; Z91.010 Allergy to peanuts; Z88.2 Allergy status to sulfonamides
CPT/HCPCS: 80305; 81003; 93005; 99284

== ENCOUNTER 2020-07-15 13:44 | Emergency (ER) | payer OTHER, MEDICAID ==
[~2020-07-15] VITALS: Ht 180.3 cm; Wt 74.0 kg
[2020-07-15 13:48] VITALS: BP 153/82
[2020-07-15] MEDS ORDERED: LORAZEPAM 1MG TABLET PO ONE ×2 (15:15)
== END 2020-07-15 15:00 | disposition home or self-care (01) ==
LOC: ER 13:49
DX: F10.239 Alcohol dependence with withdrawal, unspecified (principal); J45.909 Unspecified asthma, uncomplicated; Z79.899 Other long term (current) drug therapy; Z90.49 Acquired absence of other specified parts of digestive tract; Z98.890 Other specified postprocedural states; Z91.018 Allergy to other foods; Z91.010 Allergy to peanuts; Z88.0 Allergy status to penicillin; Z88.6 Allergy status to analgesic agent; Z88.2 Allergy status to sulfonamides; Y90.9 Presence of alcohol in blood, level not specified
CPT/HCPCS: 99283

== ENCOUNTER 2020-08-26 09:29 | Emergency (ER) | payer MEDICAID, OTHER ==
[~2020-08-26] VITALS: Ht 170.2 cm; Wt 75.0 kg
[2020-08-26] MEDS ORDERED: TRAMADOL 50MG TABLET PO ONE (10:30)
[2020-08-26 10:56] VITALS: BP 135/88
== END 2020-08-26 10:58 | disposition home or self-care (01) ==
LOC: ER 09:29
DX: G89.29 Other chronic pain (principal); M54.9 Dorsalgia, unspecified; J45.909 Unspecified asthma, uncomplicated; I10 Essential (primary) hypertension; Z88.0 Allergy status to penicillin; Z91.018 Allergy to other foods; Z91.010 Allergy to peanuts; Z88.2 Allergy status to sulfonamides; Z88.6 Allergy status to analgesic agent; Z79.899 Other long term (current) drug therapy; Z90.49 Acquired absence of other specified parts of digestive tract; Z98.890 Other specified postprocedural states
CPT/HCPCS: 93005; 99283

== ENCOUNTER 2020-10-08 16:05 | Emergency (ER) | payer MEDICAID, OTHER ==
[~2020-10-08] VITALS: Ht 170.2 cm; Wt 74.0 kg
[~2020-10-08 16:05] MED LIST changes: +ASCO500C15 MT; +HYDR-4001 MT; -L25 PO; +ONDA4TAB5 MT; +PROT20 PO; +[UNRECOGNIZED DRUG - OTHER] IV
[2020-10-08] MEDS ORDERED: MAGNESIUM/ALUMINUM HYDROXIDE/SIMETHICONE 30ML UDC PO STA (16:43)
[2020-10-08 17:23] LABS: BASOPHILS % 0.4 % (0.0-2.0); EOSINOPHILS % 9.3 % (0.0-5.0); HEMATOCRIT. 33.9 % (42.0-52.0); HEMOGLOBIN. 11.2 g/dL (14.0-18.0); LYMPHOCYTES % 55.2 % (20.0-50.0); MEAN CORPUSCULAR VOLUME 96.8 fL (80.0-94.0); MEAN PLATELET VOLUME 7.4 fl (7.4-10.4); MONOCYTES % 7.2 % (2.0-8.0); NEUTROPHILS % 27.9 % (40.0-76.0); PLATELET 225 x1000/uL (130-400); RED CELL DISTRIBUTION WIDTH 14.4 % (11.6-14.6)
[2020-10-08 17:29] LABS: CHLORIDE 108 mEq/L (98-107)
[2020-10-08] MEDS ORDERED: SODIUM CHLORIDE 0.9% 1,000 ML IV ONE (19:00)
[2020-10-08] MEDS ORDERED: MORPHINE SULFATE 4 MG/ML CPJ (NOT FOR IM USE) IV STA (19:00)
[2020-10-08 21:15] LABS: CLARITY URINE CLEAR (CLEAR); COLOR URINE YELLOW (YELLOW); KETONES URINE TRACE (NEGATIVE); LEUKOCYTE ESTERASE URINE NEGATIVE (NEGATIVE); NITRITE URINE NEGATIVE (NEGATIVE); OCCULT BLOOD URINE NEGATIVE (NEGATIVE); PROTEIN URINE NEGATIVE (NEGATIVE); SPECIFIC GRAVITY URINE 1.029 (1.005-1.030)
[2020-10-08] MEDS ORDERED: IOHEXOL-300 100 ML BOTTLE ONE (22:06)
[2020-10-08] MEDS ORDERED: HYDROCODONE/ACETAMINOPHEN 10/325MG TABLET PO ONE (22:15)
[2020-10-08] MEDS ORDERED: PREDNISONE 20MG TABLET PO ONE (22:15)
[2020-10-08] MEDS ORDERED: ONDANSETRON 4MG ODT PO ONE (22:45)
[2020-10-09 00:20] VITALS: BP 119/75
== END 2020-10-09 00:23 | disposition home or self-care (01) ==
LOC: ER 16:05
DX: R11.2 Nausea with vomiting, unspecified (principal); J45.909 Unspecified asthma, uncomplicated; I10 Essential (primary) hypertension; Z98.890 Other specified postprocedural states; Z79.899 Other long term (current) drug therapy; Z59.0 Homelessness; Z88.0 Allergy status to penicillin; Z91.010 Allergy to peanuts
CPT/HCPCS: 36415; 71045; 74177; 80053; 81003; 83690; 84484; 85025; 93005; 96361; 96374; 99285; J2270; J7030; J7512; Q0162; Q9967

== ENCOUNTER 2020-10-17 07:36 | Emergency (ER) | payer MEDICAID, OTHER ==
[~2020-10-17] VITALS: Ht 170.2 cm; Wt 74.0 kg
[2020-10-17] MEDS ORDERED: OXYCODONE HCL/ACETAMINOPHEN 5/325MG TABLET PO ONE (08:15)
[2020-10-17 08:37] VITALS: BP 160/97
[2020-10-17] MEDS ORDERED: T3 PO (09:58)
[2020-10-17] MEDS ORDERED: IBUP-2028 PO (09:58)
== END 2020-10-17 10:34 | disposition home or self-care (01) ==
LOC: ER 07:36
DX: M54.2 Cervicalgia (principal); M54.5 Low back pain; W18.2XXA Fall in (into) shower or empty bathtub, initial encounter; Y93.E1 Activity, personal bathing and showering; Y92.012 Bathroom of single-family (private) house as the place of occurrence of the external cause
CPT/HCPCS: 99284

== ENCOUNTER 2020-11-03 21:27 | Emergency (ER) | payer MEDICAID, OTHER ==
[~2020-11-03] VITALS: Ht 175.3 cm; Wt 94.0 kg
[~2020-11-03 21:27] MED LIST changes: +IBUP-2028 PO; +T3 PO
[2020-11-03 22:40] VITALS: BP 141/74
[2020-11-03] MEDS ORDERED: B25 MT (22:53)
[2020-11-03] MEDS ORDERED: DIPHENHYDRAMINE 25MG CAPSULE PO ONE (23:00)
== END 2020-11-03 22:47 | disposition home or self-care (01) ==
LOC: ER 21:27
DX: J30.2 Other seasonal allergic rhinitis (principal); K50.90 Crohn's disease, unspecified, without complications; I10 Essential (primary) hypertension; J45.909 Unspecified asthma, uncomplicated; Z98.1 Arthrodesis status; Z90.49 Acquired absence of other specified parts of digestive tract; Z88.6 Allergy status to analgesic agent; Z91.010 Allergy to peanuts; Z91.018 Allergy to other foods; Z88.8 Allergy status to other drugs, medicaments and biological substances; Z88.0 Allergy status to penicillin
CPT/HCPCS: 99282; Q0163; Z7610

== ENCOUNTER 2020-11-12 08:28 | Inpatient (IN) | payer MEDICAID, OTHER ==
[~2020-11-12] VITALS: Ht 170.2 cm; Wt 74.4 kg
[~2020-11-12 08:28] MED LIST changes: +B25 MT
[2020-11-12 10:07] LABS: BASOPHILS % 0.5 % (0.0-2.0); CHLORIDE 109 mEq/L (98-107); EOSINOPHILS % 5.3 % (0.0-5.0); HEMATOCRIT. 37.5 % (42.0-52.0); HEMOGLOBIN. 12.9 g/dL (14.0-18.0); LYMPHOCYTES % 41.8 % (20.0-50.0); MEAN CORPUSCULAR HEMOGLOBIN 32.5 pg (28.0-32.0); MEAN CORPUSCULAR VOLUME 94.1 fL (80.0-94.0); MEAN PLATELET VOLUME 7.9 fl (7.4-10.4); MONOCYTES % 7.4 % (2.0-8.0); PLATELET 225 x1000/uL (130-400); RED BLOOD CELL COUNT 3.98 mill/uL (4.7-6.1); RED CELL DISTRIBUTION WIDTH 13.2 % (11.6-14.6)
[2020-11-12] MEDS ORDERED: MORPHINE SULFATE 4 MG/ML CPJ (NOT FOR IM USE) IV ONE (11:15)
[2020-11-12] MEDS ORDERED: ONDANSETRON HCL 4MG/2ML INJ IV ONE (11:15)
[2020-11-12] MEDS ORDERED: ACETAMINOPHEN 325MG TABLET PO PRN (14:15)
[2020-11-12] MEDS ORDERED: ONDANSETRON HCL 4MG/2ML INJ IV PRN (14:15)
[2020-11-12] MEDS: HYDROCODONE/ACETAMINOPHEN 5/325MG TABLET PO PRN ×3 (15:11→23:10)
[2020-11-12 15:24] VITALS: BP 160/97
[2020-11-12 16:00] VITALS: BP 156/84
[2020-11-12] MEDS: AMLODIPINE 10MG TABLET PO SCH (17:39)
[2020-11-12 20:00] VITALS: BP 134/82
[2020-11-12] MEDS: ATORVASTATIN CALCIUM 40MG TABLET PO SCH (20:12)
[2020-11-12] MEDS: OMEPRAZOLE 20MG CAPSULE EXTENDED RELEASE PO SCH (20:12)
[2020-11-12] MEDS: ZOLPIDEM TARTRATE 5MG TABLET PO PRN (20:49)
[2020-11-12 23:54] VITALS: BP 127/65
[2020-11-13] MEDS: HYDROCODONE/ACETAMINOPHEN 5/325MG TABLET PO PRN ×2 (03:18→09:50)
[2020-11-13 04:00] VITALS: BP 112/59
[2020-11-13 06:14] LABS: CHLORIDE 109 mEq/L (98-107)
[2020-11-13 06:18] LABS: BASOPHILS % 0.4 % (0.0-2.0); EOSINOPHILS % 5.8 % (0.0-5.0); HEMATOCRIT. 35.5 % (42.0-52.0); HEMOGLOBIN. 11.8 g/dL (14.0-18.0); LYMPHOCYTES % 44.6 % (20.0-50.0); MEAN CORPUSCULAR HEMOGLOBIN 31.7 pg (28.0-32.0); MEAN CORPUSCULAR VOLUME 95.5 fL (80.0-94.0); MONOCYTES % 7.9 % (2.0-8.0); NEUTROPHILS % 41.3 % (40.0-76.0); PLATELET 198 x1000/uL (130-400); RED BLOOD CELL COUNT 3.72 mill/uL (4.7-6.1); RED CELL DISTRIBUTION WIDTH 12.9 % (11.6-14.6)
[2020-11-13 08:00] VITALS: BP 142/78
[2020-11-13] MEDS ORDERED: PANTOPRAZOLE SODIUM 40 MG/VIAL IV SCH (09:00)
[2020-11-13] MEDS: AMLODIPINE 10MG TABLET PO SCH (09:50)
[2020-11-13] MEDS: OMEPRAZOLE 20MG CAPSULE EXTENDED RELEASE PO SCH ×2 (09:50→17:33)
[2020-11-13] MEDS: HYDROCODONE/ACETAMINOPHEN 10/325MG TABLET PO PRN ×3 (14:59→23:10)
[2020-11-13] MEDS: HYDROCORTISONE ACETATE 25MG SUPP PR SCH ×3 (14:59→21:00)
[2020-11-13 15:19] LABS: CLARITY URINE CLEAR (CLEAR); COLOR URINE YELLOW (YELLOW); KETONES URINE NEGATIVE (NEGATIVE); LEUKOCYTE ESTERASE URINE NEGATIVE (NEGATIVE); NITRITE URINE NEGATIVE (NEGATIVE); OCCULT BLOOD URINE NEGATIVE (NEGATIVE); PROTEIN URINE NEGATIVE (NEGATIVE); SPECIFIC GRAVITY URINE 1.007 (1.005-1.030); UROBILINOGEN URINE 0.2 E.U./dL (0.2-1.0)
[2020-11-13 15:39] LABS: *AMPHETAMINES SCREEN URINE NEGATIVE (NEGATIVE); *BARBITURATES SCREEN URINE NEGATIVE (NEGATIVE); *BENZODIAZEPINES SCREEN URINE PRESUMTIVE POSITIVE (NEGATIVE); *COCAINE SCREEN URINE NEGATIVE (NEGATIVE); METHADONE URINE SCREEN NEGATIVE (NEGATIVE)
[2020-11-13 15:40] LABS: CANNABINOID URINE SCREEN NEGATIVE (NEGATIVE); OPIATES URINE SCREEN PRESUMTIVE POSITIVE (NEGATIVE); PHENCYCLIDINE URINE SCREEN NEGATIVE (NEGATIVE)
[2020-11-13 16:00] VITALS: BP_SYST 123; BP_SYST 141; BP_DIAS 54; BP_DIAS 82
[2020-11-13 20:00] VITALS: BP 127/78
[2020-11-13] MEDS: ZOLPIDEM TARTRATE 5MG TABLET PO PRN (20:18)
[2020-11-13] MEDS: ATORVASTATIN CALCIUM 40MG TABLET PO SCH (20:19)
[2020-11-14] VITALS: BP 115/82
[2020-11-14 04:00] VITALS: BP 110/88
[2020-11-14] MEDS: HYDROCODONE/ACETAMINOPHEN 10/325MG TABLET PO PRN ×4 (04:10→20:12)
[2020-11-14 07:21] LABS: FOLIC ACID (FOLATE) SERUM 12.4 ng/mL (>5.38)
[2020-11-14 07:32] LABS: TOTAL IRON BINDING CAPACITY 282 ug/dL (250-450)
[2020-11-14 08:27] VITALS: BP 135/92
[2020-11-14] MEDS: OMEPRAZOLE 20MG CAPSULE EXTENDED RELEASE PO SCH ×2 (09:11→17:39)
[2020-11-14] MEDS: AMLODIPINE 10MG TABLET PO SCH (09:12)
[2020-11-14] MEDS: HYDROCORTISONE ACETATE 25MG SUPP PR SCH ×2 (09:12→20:13)
[2020-11-14] MEDS ORDERED: LORAZEPAM 1MG TABLET PO PRN (11:15)
[2020-11-14 12:11] VITALS: BP 133/83
[2020-11-14] MEDS ORDERED: LIDOCAINE HCL 1% 20ML VIAL (Pyxis) INJ ONE (14:01)
[2020-11-14] MEDS ORDERED: IOHEXOL-300 100 ML BOTTLE ONE (15:19)
[2020-11-14 15:33] VITALS: BP 141/87
[2020-11-14] MEDS ORDERED: HYDR-4009 MT (17:11)
[2020-11-14] MEDS: ATORVASTATIN CALCIUM 40MG TABLET PO SCH (20:12)
[2020-11-15] VITALS: BP 115/89
[2020-11-15] MEDS: HYDROCODONE/ACETAMINOPHEN 10/325MG TABLET PO PRN ×3 (00:47→09:40)
[2020-11-15 04:00] VITALS: BP 108/87
[2020-11-15 07:50] VITALS: BP 132/81
[2020-11-15] MEDS: HYDROCORTISONE ACETATE 25MG SUPP PR SCH (09:00)
[2020-11-15] MEDS: OMEPRAZOLE 20MG CAPSULE EXTENDED RELEASE PO SCH (09:39)
[2020-11-15] MEDS: AMLODIPINE 10MG TABLET PO SCH (09:40)
[2020-11-15 11:16] VITALS: BP 132/74
== END 2020-11-15 13:01 | disposition home or self-care (01) | DRG 245 ==
LOC: ER 08:52 → 6WST 11:26 → ENRESERV 12:49
PROVIDERS: ADMIT Internal Medicine; ATTEND Internal Medicine
PROC: 02HV33Z Insertion of Infusion Device into Superior Vena Cava, Percutaneous Approach (ICD-10-PCS; principal; 2020-11-14)
PROC: B518ZZA Fluoroscopy of Superior Vena Cava, Guidance (ICD-10-PCS; 2020-11-14)
DX: K50.90 Crohn's disease, unspecified, without complications (principal); D70.2 Other drug-induced agranulocytosis; I16.0 Hypertensive urgency; I25.110 Atherosclerotic heart disease of native coronary artery with unstable angina pectoris; D53.9 Nutritional anemia, unspecified; Z20.822 Contact with and (suspected) exposure to COVID-19; E78.5 Hyperlipidemia, unspecified; I10 Essential (primary) hypertension; J45.909 Unspecified asthma, uncomplicated; Z82.49 Family history of ischemic heart disease and other diseases of the circulatory system; Z88.6 Allergy status to analgesic agent; Z88.0 Allergy status to penicillin; Z91.018 Allergy to other foods; Z79.899 Other long term (current) drug therapy; Z79.891 Long term (current) use of opiate analgesic; K29.50 Unspecified chronic gastritis without bleeding; T39.95XA Adverse effect of unspecified nonopioid analgesic, antipyretic and antirheumatic, initial encounter
CPT/HCPCS: 36415; 36573; 71045; 74177; 80048; 80053; 80305; 81003; 82270; 82607; 82728; 82746; 83540; 83550; 83880; 84484; 85025; 85044; 87426; 93005; 93306; 99285; C1725; C1893; J2270; J2405; J3490; Q9967

== ENCOUNTER 2021-01-20 08:00 | Emergency (ER) | payer MEDICAID, OTHER ==
[~2021-01-20] VITALS: Ht 170.2 cm; Wt 75.0 kg
[~2021-01-20 08:00] MED LIST changes: +HYDR-4009 MT; -IBUP-2028 PO
[2021-01-20] MEDS ORDERED: DEXAMETHASONE 10 MG/ML VIAL IV ONE (08:30)
[2021-01-20] MEDS ORDERED: HYDROCODONE/ACETAMINOPHEN 5/325MG TABLET PO ONE (08:30)
[2021-01-20] MEDS ORDERED: LIDOCAINE 5% PATCH TOP SCH (09:00)
[2021-01-20 09:13] LABS: *AMPHETAMINES SCREEN URINE NEGATIVE (NEGATIVE); *BARBITURATES SCREEN URINE NEGATIVE (NEGATIVE); *BENZODIAZEPINES SCREEN URINE PRESUMTIVE POSITIVE (NEGATIVE); *COCAINE SCREEN URINE NEGATIVE (NEGATIVE); METHADONE URINE SCREEN NEGATIVE (NEGATIVE)
[2021-01-20 09:14] LABS: CANNABINOID URINE SCREEN NEGATIVE (NEGATIVE); OPIATES URINE SCREEN PRESUMTIVE POSITIVE (NEGATIVE); PHENCYCLIDINE URINE SCREEN NEGATIVE (NEGATIVE)
[2021-01-20] MEDS ORDERED: HYDR-4346 MT (10:15)
[2021-01-20 10:43] VITALS: BP 120/78
== END 2021-01-20 10:24 | disposition home or self-care (01) ==
LOC: ER 08:00
DX: G89.29 Other chronic pain (principal); M54.5 Low back pain; J45.909 Unspecified asthma, uncomplicated; I10 Essential (primary) hypertension; Z98.890 Other specified postprocedural states; Z79.899 Other long term (current) drug therapy; Z88.0 Allergy status to penicillin
CPT/HCPCS: 80305; 96374; 99283; J1100

== ENCOUNTER 2021-02-25 06:34 | Emergency (ER) | payer OTHER, MEDICAID ==
[~2021-02-25] VITALS: Ht 170.2 cm; Wt 74.0 kg
[~2021-02-25 06:34] MED LIST changes: +HYDR-4346 MT
[2021-02-25] MEDS ORDERED: MORPHINE SULFATE 10 MG/ML CPJ IV ONE (09:15)
[2021-02-25] MEDS ORDERED: MORPHINE SULFATE 4 MG/ML CPJ (NOT FOR IM USE) IV PRN (09:15)
[2021-02-25 09:31] LABS: BASOPHILS % 0.5 % (0.0-2.0); EOSINOPHILS % 1.4 % (0.0-5.0); HEMOGLOBIN. 13.6 g/dL (14.0-18.0); LYMPHOCYTES % 23.7 % (20.0-50.0); MEAN CORPUSCULAR HEMOGLOBIN 30.8 pg (28.0-32.0); MEAN CORPUSCULAR VOLUME 93.1 fL (80.0-94.0); MEAN PLATELET VOLUME 7.8 fl (7.4-10.4); MONOCYTES % 7.1 % (2.0-8.0); NEUTROPHILS % 67.3 % (40.0-76.0); PLATELET 270 x1000/uL (130-400); RED CELL DISTRIBUTION WIDTH 13.3 % (11.6-14.6)
[2021-02-25 09:37] LABS: CHLORIDE 105 mEq/L (98-107)
[2021-02-25] MEDS ORDERED: HYDR-4001 MT (11:15)
[2021-02-25 11:30] VITALS: BP 154/88
== END 2021-02-25 11:30 | disposition home or self-care (01) ==
LOC: ER 06:34
DX: R10.0 Acute abdomen (principal); E87.6 Hypokalemia; K50.90 Crohn's disease, unspecified, without complications; Z79.899 Other long term (current) drug therapy; Z98.890 Other specified postprocedural states; Z88.0 Allergy status to penicillin; Z88.8 Allergy status to other drugs, medicaments and biological substances; Z91.02 Food additives allergy status; Z91.010 Allergy to peanuts; Z91.018 Allergy to other foods
CPT/HCPCS: 36415; 80048; 80076; 83690; 84484; 85025; 96374; 99283; J2270

== ENCOUNTER 2021-03-30 15:31 | Emergency (ER) | payer OTHER ==
[~2021-03-30] VITALS: Ht 170.2 cm; Wt 74.0 kg
[2021-03-30] MEDS ORDERED: ASPIRIN 81MG TABLET PO ONE (17:45)
[2021-03-30] MEDS ORDERED: NITROGLYCERIN OINT 1GM/INCH UDPKT TD ONE (17:45)
[2021-03-30] MEDS ORDERED: MORPHINE SULFATE 2 MG/ML CPJ (NOT FOR IM USE) IV ONE (17:45)
[2021-03-30 18:54] LABS: BASOPHILS % 0.8 % (0.0-2.0); EOSINOPHILS % 0.6 % (0.0-5.0); HEMATOCRIT. 38.5 % (42.0-52.0); HEMOGLOBIN. 13.1 g/dL (14.0-18.0); LYMPHOCYTES % 33.3 % (20.0-50.0); MEAN CORPUSCULAR HEMOGLOBIN 31.6 pg (28.0-32.0); MEAN CORPUSCULAR VOLUME 92.9 fL (80.0-94.0); MEAN PLATELET VOLUME 7.2 fl (7.4-10.4); MONOCYTES % 7.3 % (2.0-8.0); PLATELET 249 x1000/uL (130-400); RED BLOOD CELL COUNT 4.15 mill/uL (4.7-6.1); RED CELL DISTRIBUTION WIDTH 14.6 % (11.6-14.6)
[2021-03-30 18:57] LABS: CHLORIDE 106 mEq/L (98-107)
[2021-03-30 19:00] LABS: PROTHROMBIN TIME 10.6 sec (9.6-11.0)
[2021-03-30] MEDS ORDERED: ONDANSETRON HCL 4MG/2ML INJ IV STA (22:30)
[2021-03-30] MEDS ORDERED: MORPHINE SULFATE 4 MG/ML CPJ (NOT FOR IM USE) IV STA (22:30)
[2021-03-30 23:39] VITALS: BP 160/99
== END 2021-03-30 23:39 | disposition short-term general hospital (02) ==
LOC: ER 15:31 → EDBEDREQ 20:45 → EDBEDREQTM 20:45 → CANBEDREQ 21:18 → ER 23:39
DX: R07.89 Other chest pain (principal); I10 Essential (primary) hypertension; K50.90 Crohn's disease, unspecified, without complications; Z90.49 Acquired absence of other specified parts of digestive tract; Z91.010 Allergy to peanuts; Z91.018 Allergy to other foods; Z88.0 Allergy status to penicillin
CPT/HCPCS: 36415; 71045; 80053; 83880; 84484; 85025; 85610; 93970; 96374; 96375; 96376; 99285; J2270; J2405; Z7610

== ENCOUNTER 2021-04-06 07:11 | Emergency (ER) | payer OTHER ==
[~2021-04-06] VITALS: Ht 170.2 cm; Wt 74.0 kg
[2021-04-06] MEDS ORDERED: HYDROCODONE/ACETAMINOPHEN 10/325MG TABLET PO ONE (08:00)
[2021-04-06] MEDS ORDERED: HYDR-4009 MT (08:53)
[2021-04-06 09:22] VITALS: BP 131/89
== END 2021-04-06 09:23 | disposition home or self-care (01) ==
LOC: ER 07:11
DX: M54.5 Low back pain (principal); G89.29 Other chronic pain; I10 Essential (primary) hypertension; K50.90 Crohn's disease, unspecified, without complications; J45.909 Unspecified asthma, uncomplicated; Z90.49 Acquired absence of other specified parts of digestive tract; Z98.1 Arthrodesis status; Z88.6 Allergy status to analgesic agent; Z91.010 Allergy to peanuts; Z88.0 Allergy status to penicillin; Z91.018 Allergy to other foods
CPT/HCPCS: 99283

== ENCOUNTER 2022-04-15 21:25 | Emergency (ER) | payer OTHER ==
[~2022-04-15] VITALS: Ht 170.2 cm; Wt 75.0 kg
[~2022-04-15 21:25] MED LIST changes: +TOPUD MT
[2022-04-15 21:51] VITALS: BP 148/87
== END 2022-04-15 23:00 | disposition left against medical advice (07) ==
LOC: ER 21:25
DX: Z53.21 Procedure and treatment not carried out due to patient leaving prior to being seen by health care provider (principal)

== ENCOUNTER 2025-06-16 11:33 | Emergency (ER) | payer OTHER ==
[~2025-06-16] VITALS: Ht 172.7 cm; Wt 73.0 kg
[~2025-06-16 11:33] MED LIST changes: +ALBU6.7H3 INH; -ALBU6.7H9 INH; +ASCO500C14 MT; -ASCO500C15 MT; -B25 MT; +DIPH-1207 MT; -TAMS-11 PO; +TAMS-54 PO
[2025-06-16 11:42] VITALS: O2SAT 99
[2025-06-16] MEDS ORDERED: ACETAMINOPHEN WITH CODEINE 300/30MG TABLET PO ONE (13:15)
[2025-06-16] MEDS: ACETAMINOPHEN WITH CODEINE 300/30MG TABLET PO NR (13:48)
[2025-06-16] MEDS ORDERED: CARI250T MT (14:17)
[2025-06-16] MEDS ORDERED: ACET-3800 MT (14:17)
[2025-06-16] MEDS ORDERED: BACL-141 MT (14:18)
[2025-06-16 14:27] VITALS: BP 160/79; PULSE 82; RESP 18; TEMP 36.8; O2SAT 98
== END 2025-06-16 14:30 | disposition home or self-care (01) ==
LOC: ER 11:33
DX: M54.9 Dorsalgia, unspecified (principal); F10.21 Alcohol dependence, in remission; I10 Essential (primary) hypertension; I67.82 Cerebral ischemia; J45.909 Unspecified asthma, uncomplicated; Z79.899 Other long term (current) drug therapy; Z82.49 Family history of ischemic heart disease and other diseases of the circulatory system; Z86.73 Personal history of transient ischemic attack (TIA), and cerebral infarction without residual deficits; Z88.0 Allergy status to penicillin; Z88.6 Allergy status to analgesic agent; Z91.010 Allergy to peanuts; W01.0XXA Fall on same level from slipping, tripping and stumbling without subsequent striking against object, initial encounter; Y93.89 Activity, other specified; Y92.89 Other specified places as the place of occurrence of the external cause; Y99.8 Other external cause status
CPT/HCPCS: 72131; 99284